=== PATIENT | male | born 1970 | race Caucasian/White ===

== ENCOUNTER 2021-01-02 17:26 | Emergency (ER) | payer OTHER, MEDICAID, SELFPAY ==
[2021-01-02 17:51] VITALS: BP 159/99; PULSE 103; RESP 16; TEMP 36.1; O2SAT 99
[2021-01-02 19:20] VITALS: BP 158/106; PULSE 94; RESP 15; TEMP 36.6; O2SAT 97
[2021-01-02 19:32] LABS: Basophils Percent Auto 0.3 % (0.2-1.2); Eosinophils Absolute Auto 0.2 K/mm3 (0-0.3); Eosinophils Percent Auto 1.3 % (0-4.4); Hematocrit 44.8 % (42.0-52.0); Hemoglobin 14.8 g/dL (14.0-18.0); Immature Granulocyte Absolute 0.04 K/mm3 (0.00-0.031); Immature Granulocyte Percent A 0.3 % (0-0.5); Lymphocytes Absolute Auto 1.73 K/mm3 (0.9-3.2); Lymphocytes Percent Auto 12.9 % (18.3-44.2); Mean Corpuscular Hemoglobin 28.1 pg (26-34); Mean Platelet Volume 9.4 fl (7.4-10.4); Monocytes Absolute Auto 1.2 K/mm3 (0.1-0.6); Monocytes Percent Auto 9.1 % (2.6-8.5); Neutrophils Absolute Auto 10.2 K/mm3 (1.3-6.7); Neutrophils Percent Auto 76.1 % (45.5-73.1); Platelet Count Result 278 k/mm3 (150-375); Red Blood Count 5.27 M/mm3 (4.6-6.20); Red Cell Distribution Width 12.8 % (11.5-14.5); White Blood Count 13.4 K/mm3 (4.5-10.0)
[2021-01-02 19:41] LABS: Add Urine Microscopic? YES; Appearance Urine Clear (Clear); Bilirubin Urine Negative (Negative); Blood Urine 1+ (Negative); Color Urine Yellow (Yellow); Glucose Urine UA Negative (Negative); Ketones Urine Negative (Negative); Leukocyte Esterase Ur Negative LEU/UL (Negative); Mucus Urine Few /lpf; Nitrate Urine Negative (Negative); Protein Urine 2+ mg/dL (Negative); Urobilinogen Urine Negative mg/dL (<2.0)
[2021-01-02 19:42] LABS: Anion Gap 10 mmol/L (8-16); Blood Urea Nitrogen 14 mg/dL (9-20); Calcium 9.1 mg/dL (8.4-10.2); Carbon Dioxide 26 mmol/L (22-30); Chloride 105 mmol/L (98-107); Estimated CRCL calculation 53 ml/min; Estimated Glomerular Filt Rate 40; Glucose 106 mg/dL (75-110); Potassium 3.9 mmol/L (3.4-5.0); Sodium 141 mmol/L (137-145)
[2021-01-02 19:45] LABS: Specific Grav Ur 1.034 (1.001-1.035)
--- NOTE | 2021-01-02 21:22 | PC.NURSE ---
Pt not noted in WR when called for placement into a room.
--- NOTE | 2021-01-02 21:35 | PC.NURSE ---
Pt not noted in the WR at this time on second call.
== END 2021-01-03 05:08 | disposition left against medical advice (07) ==
LOC: ANHED 21:44
PROVIDERS: Emergency Provider Family Medicine
DX: R10.9 Unspecified abdominal pain (principal)
CPT/HCPCS: 36415; 80048; 81001; 85025; 99199

== ENCOUNTER → 2021-03-26 10:14 | Outpatient (CLI) | payer OTHER, MEDICAID, SELFPAY ==
--- NOTE | ~2021-03-26 | CT_ITS ---
EXAMINATION: CT abdomen pelvis wo/w con EXAM DATE: 03/26/2021 11:02 INDICATION: Gross hematuria . TECHNIQUE: Spiral CT of the abdomen and pelvis was performed without contrast. The patient was then injected with small bolus intravenous Omnipaque 350, followed by delay of approximately 10 minutes to allow collecting system to opacify. A post contrast scan abdomen and pelvis was performed during inj ection of remaining contrast. A total of 130 cc intravenous contrast was administered. The dose-young th product (DLP) for this examination was 2281.78 mGy-cm. The exposure was tailored according to pat ient size (auto mA exposure control), and iterative reconstruction (ASIR) was used as additional dose reduction technique. There is no prior study for comparison. FINDINGS: There is punctate 2 mm right calyceal stone. No ureteral stones or hydronephrosis. There i s 1.2 cm cyst in the lower pole of the right kidney. The kidneys enhance symmetrically. There are n o suspicious renal lesions. The calyces and opacified portions of ureters are unremarkable, without filling defects or focal suspicious strictures. The bladder is unremarkable. The prostate is unrema rkable. The liver, spleen, adrenal glands and pancreas are unremarkable. Gallbladder is unremarkable. No bi liary obstruction. There is no retroperitoneal or pelvic lymphadenopathy. The appendix is normal. The stomach and small bowel are unremarkable. There is mild scattered coloni c diverticulosis. There is no adjacent inflammatory change to suggest diverticulitis. There is expec agustina amount of colonic stool. No free intraperitoneal gas. The heart is normal in size. There are no pericardial or pleural effusions. The lung bases are unremarkable. There are no osteoblastic or osteolytic lesions identified. IMPRESSION: 1. Punctate right nephrolithiasis. 2. Mild colonic diverticulosis. Reviewed, dictated and finalized at location B.
[2021-03-26 10:37] LABS: Estimated Glomerular Filt Rate 58
== END ==
PROVIDERS: PCP Family Medicine; Visit Provider Family Medicine
DX: R31.0 Gross hematuria (principal); N20.0 Calculus of kidney; K57.30 Diverticulosis of large intestine without perforation or abscess without bleeding; N28.1 Cyst of kidney, acquired
CPT/HCPCS: 74178; Q9967

== ENCOUNTER 2022-01-25 18:29 | Observation (INO) | payer OTHER, MEDICAID, SELFPAY ==
[2022-01-25] VITALS (11 sets, daily range): BP systolic 140–188; BP diastolic 100–115; PULSE 64–99; RESP 16–20; TEMP 36–36.5; O2SAT 96–100; BMI 35.1
--- NOTE | ~2022-01-25 | CT_ITS ---
EXAMINATION: CT abdomen pelvis wo con DATE: 01/25/2022 19:25 INDICATION: LEFT FLANK PAIN X 24 HOURS/NO HX OF STONES TECHNIQUE: Computed tomography (CT) of the abdomen and pelvis was performed without intravenous contr ast. Automated exposure control and iterative reconstruction technique were employed. The dose-length product was 1068.70 mGy-cm. COMPARISON: 03/26/2021. FINDINGS: Lower thorax: Coronary artery calcifications Liver: Normal. Biliary/Gallbladder: Gallbladder is normal. No bile duct dilation. Pancreas: No mass or duct dilation. Spleen: Normal. Adrenals:No mass. Kidneys: Severe left hydronephrosis and perinephric stranding. Bilateral punctate nonobstructive calc sole. Right renal hypodensities, inadequately characterized in this noncontrast examination. GI tract: No small or large bowel dilation. Normal appendix. Diverticulosis without diverticulitis. Mesentery/Peritoneum: No ascites, mass, or free air. Retroperitoneum: No mass. Atherosclerotic abdominal aortic and/or arterial calcifications. Pelvis: Distal left ureteral dilation. 3 mm calcification in the distal left ureter just prior to the UVJ. 11 mm left pelvic calcification is extra ureteral and was seen in prior study. Soft Tissues: Soft tissues and body wall unremarkable. Bones: No acute osseous finding. IMPRESSION: 3 mm distal left ureteral stone causing severe obstructive uropathy. Reviewed, dictated and finalized at location K.
--- NOTE | 2022-01-25 19:01 | PC.NURSE ---
REPORT TO DESTINEE BARRERA
--- NOTE | 2022-01-25 19:03 | ED.GENADULT ---
HPI - General Adult General Chief complaint: Urogenital-Male Stated complaint: abdominal/rib pain History of Present Illness HPI narrative: Cory is a previously healthy 51M that presented to the ED with abdominal pain. He has had this pain off and on for about a year but it became much worse. It is a stabbing pain that starts in his left flank and goes to the back, LLQ and suprapubic region. It started after a BM. Since it started he has been unable to urinate. He had a BM yesterday. No vomiting, CP, SOB or lightheadedness reported. Related Data Home Medications Medication Instructions Recorded Confirmed No Home Medications 01/25/22 01/25/22 Allergies Allergy/AdvReac Type Severity Reaction Status Date / Time No Known Allergies Allergy Verified 01/25/22 19:12 Review of Systems Constitutional: Constitutional: Reports no additional constitutional complaints Eyes: Eyes: Reports no additional eye complaints ENT: Reports system reviewed and no additional complaints, except as documented Cardiovascular: Cardiovascular: Reports no additional cardiovascular complaints Respiratory: Respiratory: Reports no additional respiratory complaints Gastrointestinal: Gastrointestinal: Reports as per HPI Genitourinary: Genitourinary: Reports as per HPI Musculoskeletal: Musculoskeletal: Reports no additional musculoskeletal complaints Integumentary/Breasts: Skin/Breast: Reports system reviewed and no additional complaints, except as docu Neurologic: Reports system reviewed and no additional complaints, except as documented Psychiatric: Psychiatric: Reports no additional psychiatric complaints Endocrine: Endocrine: Reports no additional endocrine complaints Hematologic/Lymphatic: Hematologic/Lymphatic: Reports no additional hematologic/lymphatic complaints Allergic/Immunologic: Allergic/Immunologic: Reports no additional allergic/immunologic complaints Exam Const: General: healthy appearing and ill appearing acutely (mild distress) Nutritional Appearance: well nourished Orientation/consciousness: patient oriented x3 Limitations: no limitations HENMT: Head: normal to inspection Ears: external ears normal General nose exam: Normal external nose present Face and sinus: normal facial exam Eyes: Conjunctivae: conjunctivae normal Pupils: Equal, round and reactive pupils present EOM: EOMs intact bilaterally Neck: Neck: normal visual inspection Chest: Chest palpation & inspection: normal inspection of the chest Resp: Effort & Inspection: normal respiratory effort and not labored Auscultation: clear to auscultation bilaterally Cardio: Rate: regular rate Rhythm: regular rhythm GI: Inspection: non-distended GI Palp: Yes Soft to palpation and No Guarding due to palpation present (GI) Other: TTP in the suprapubic region and the LLQ. No guarding or rebound tenderness. decreased bowel sounds : Other: Left CVA tenderness Skin: General skin exam: normal color Rashes: no rashes Neuro: General: patient oriented x3 and moves all extremities Extrem: General: normal to inspection Psych: Mental Status: mental status grossly normal Course Course Emergency Course: Ordered morphine for pain. Ordered CT scan, labs and bladder scan. Labs showed slight leukocytosis. UA showed trace blood but no other signs of infection. He did have an CHAS with Cr. of 1.8 but a baseline of 1.3. EXAMINATION: CT abdomen pelvis wo con DATE: 01/25/2022 19:25 INDICATION: LEFT FLANK PAIN X 24 HOURS/NO HX OF STONES TECHNIQUE: Computed tomography (CT) of the abdomen and pelvis was performed without intravenous contrast. Automated exposure control and iterative reconstruction technique were employed. The dose-length product was 1068.70 mGy-cm. COMPARISON: 03/26/2021. FINDINGS: Lower thorax: Coronary artery calcifications Liver: Normal.? Biliary/Gallbladder: Gallbladder is normal. No bile duct dilation. Pancreas: No mass or duct dilatio
[2022-01-25] MEDS: MORPHINE SULFATE (*CRX) 4 MG/ML INJ IV PUSH (19:17)
[2022-01-25 19:36] LABS: Add Urine Microscopic? YES; Appearance Urine Clear (Clear); Bilirubin Urine Negative (Negative); Blood Urine 1+ (Negative); Color Urine Light Yellow (Yellow); Glucose Urine UA Negative (Negative); Ketones Urine Negative (Negative); Leukocyte Esterase Ur Negative (Negative); Nitrate Urine Negative (Negative); Protein Urine Negative (Negative); Specific Grav Ur 1.015 (1.010-1.020); Urobilinogen Urine 0.2 mg/dL (0.2-1.0); pH Urine 5.5 (5.0-8.0)
[2022-01-25 19:41] LABS: RBC Urine 0-2 /hpf (0-2)
[2022-01-25 20:04] LABS: Basophils Absolute Auto 0.04 K/mm3 (0.00-0.10); Basophils Percent Auto 0.3 % (0.0-1.0); Eosinophils Absolute Auto 0.16 K/mm3 (0.02-0.50); Eosinophils Percent Auto 1.1 % (1.0-6.0); Hematocrit 46.1 % (40.0-54.0); Hemoglobin 15.3 g/dL (14.0-18.0); Immature Granulocyte Absolute 0.06 K/mm3 (0.00-0.00); Immature Granulocyte Percent A 0.4 % (0.0-0.0); Lymphocytes Absolute Auto 1.75 K/mm3 (1.10-4.50); Lymphocytes Percent Auto 12.2 % (18.0-42.0); Mean Corpuscular HGB Conc 33.2 g/dL (32.0-36.0); Mean Corpuscular Hemoglobin 28.4 pg (27.0-31.0); Mean Corpuscular Volume 85.5 fL (78.0-102.0); Mean Platelet Volume 9.6 fl (8.7-11.0); Monocytes Absolute Auto 1.26 K/mm3 (0.10-0.90); Monocytes Percent Auto 8.8 % (2.0-11.0); Neutrophils Absolute Auto 11.1 K/mm3 (1.7-7.2); Neutrophils Percent Auto 77.2 % (50.0-70.0); Platelet Count Result 295 K/mm3 (150-420); Red Blood Count 5.39 M/mm3 (4.70-6.10); Red Cell Distribution Width 12.6 % (11.6-14.4); White Blood Count 14.3 K/mm3 (4.8-10.8)
[2022-01-25 20:19] LABS: Alanine Aminotransferase 24 U/L (16-63); Albumin Level 3.6 g/dL (3.4-5.0); Alkaline Phosphatase 81 U/L (46-116); Anion Gap 5 mmol/L (8-16); Aspartate Amino Transferase 14 U/L (15-37); Blood Urea Nitrogen 13 mg/dL (7-18); CRP 1.4 mg/dL (0.0-0.9); Calcium 8.8 mg/dL (8.5-10.1); Carbon Dioxide 30 mmol/L (21-32); Chloride 103 mmol/L (98-108); Estimated CRCL calculation 60 ml/min; Estimated Glomerular Filt Rate 41; Glucose 93 mg/dL (70-99); Lipase 80 U/L (73-393); Osmolality Calculated 286 mOsm/kg (285-295); Potassium 3.6 mmol/L (3.5-5.1); Sodium 138 mmol/L (136-145); Total Protein 7.2 g/dL (6.4-8.2)
[2022-01-25 20:20] LABS: INR 0.9; Prothrombin Time 10.2 Seconds (9.50-12.10)
[2022-01-25 20:23] LABS: Lactic Acid Reflex 1.5 mmol/L (0.4-2.0)
[2022-01-25] MEDS: TAMSULOSIN HCL 0.4 MG CAPSULE PO (21:13)
[2022-01-25] MEDS: SODIUM CHLORIDE 0.9% IV 1,000 ML 200 ML IV CONT (21:14)
[2022-01-25] MEDS: MORPHINE SULFATE (*CRX) 2 MG/ML INJ IV PUSH (21:21)
--- NOTE | 2022-01-25 22:02 | ECG_ITS ---
Measurements Intervals [place] Rate: 74 P: 64 [place]: 153 QRS: 80 QRSD: 106 T: 71 QT: 407 QTc: 453 Interpretive Statements SINUS RHYTHM POSSIBLE LEFT ATRIAL ENLARGEMENT LOW QRS VOLTAGE IN PRECORDIAL LEADS BORDERLINE T WAVE ABNORMALITY- HIGH LATERAL LEADS BASELINE ARTIFACT- I, III, AVL, V2 BORDERLINE ECG Electronically Signed On 01-26-2022 7:43:25 CDT by Luis Alfredo Almazan D.O.
--- NOTE | 2022-01-25 22:53 | ADMGEN ---
This patient, Cory Chase, was admitted to 2nd Floor Room 202-1. Patient/family oriented to hospital policies and general routines including ID bracelet, bed and alarms, visiting hours, pain management, procedures, bathroom and other care routines, personal items, smoking policy, room service/diet, and visiting hours. Information on how to activate the Rapid Response Team has been discussed. Patient/Family are encouraged to report perceived risks to care and to ask questions if they do not understand what they are told or what they should do.
[2022-01-26] MEDS: ACETAMINOPHEN 325 MG TABLET 650 MG PO ×2 (00:38→05:26)
[2022-01-26] MEDS: SODIUM CHLORIDE 0.9% IV 1,000 ML 200 ML IV CONT (04:52)
[2022-01-26 06:18] LABS: Hematocrit 44.1 % (40.0-54.0); Hemoglobin 14.3 g/dL (14.0-18.0); Mean Corpuscular HGB Conc 32.4 g/dL (32.0-36.0); Mean Corpuscular Hemoglobin 28.1 pg (27.0-31.0); Mean Corpuscular Volume 86.8 fL (78.0-102.0); Mean Platelet Volume 10.1 fl (8.7-11.0); Platelet Count Result 260 K/mm3 (150-420); Red Blood Count 5.08 M/mm3 (4.70-6.10); Red Cell Distribution Width 12.9 % (11.6-14.4); White Blood Count 8.2 K/mm3 (4.8-10.8)
[2022-01-26 06:37] LABS: Alanine Aminotransferase 19 U/L (16-63); Albumin Level 3.2 g/dL (3.4-5.0); Alkaline Phosphatase 76 U/L (46-116); Anion Gap 8 mmol/L (8-16); Aspartate Amino Transferase 13 U/L (15-37); Bilirubin,Total 0.7 mg/dL (0.00-1.00); Blood Urea Nitrogen 12 mg/dL (7-18); Calcium 8.4 mg/dL (8.5-10.1); Carbon Dioxide 26 mmol/L (21-32); Chloride 104 mmol/L (98-108); Estimated CRCL calculation 82 ml/min; Estimated Glomerular Filt Rate > 60; Glucose 107 mg/dL (70-99); Magnesium 2.1 mg/dL (1.8-2.4); Osmolality Calculated 285 mOsm/kg (285-295); Potassium 3.4 mmol/L (3.5-5.1); Sodium 138 mmol/L (136-145); Total Protein 6.7 g/dL (6.4-8.2)
[2022-01-26 08:00] VITALS: BP 153/96; PULSE 73; RESP 16; TEMP 35.8; O2SAT 96
--- NOTE | 2022-01-26 08:01 | PM.SD2 ---
Same Day Admit/Disch: HPI History of Present Illness Chief complaint: abdominal/rib pain Narrative: Cory Chase is a 51 year old male who presented to emergency department with abdominal pain. Patient notes that he does have a history of having kidney stones. Patient notes that on Wednesday he experienced pain to his left lower quadrant that radiated to his lower left back and epigastric area. Patient notes that he has experienced pain in this area in the past but not as severe. Patient does have a history of kidney stones and was told in the past consult the urologist. Patient notes that he has Medicaid and was unable to locate a provider that will accept his insurance. Patient is better controlled today and he was educated on the importance of following up with the urologist to resolve his situation. Patient has been given referral to urologist at [facility] he was discharged with Flomax as recommended by the urologist pain medication instructed to strain his urine and antibiotic for possible infection. Patient's blood pressure is elevated at 168/115 due to his pain. Patient denies any history of hypertension. Once his pain is controlled his blood pressure will go down. He will need to follow-up with his primary care physician. Other vitals 64, 16, 97.6, 97% on room air admissions labs WBCs 14.3, hemoglobin 15.3, hematocrit 46.1, platelets 295, sodium 138, potassium 3.6, BUN 13, lactic acid 1.5, AST 14, ALT 24, CRP 1.4, UA positive for blood CT of the abdomen indicates distal left urethral dilution 3 cm modification in the distal left urethra just prior to the UVJ.11 mm left pelvic calcification is extra ureteral and was seen in prior study. Discharge instructions reviewed with patient, as well as provided in writing per nursing staff. The instructions also include specific and strict return/GO TO THE ER as well as f/u information. All questions have been answered, and the patient and/or family deny any further questions with discharge and discharge plan. The patient denies SOB, CP, palpitation, extremity numbness, lightheadedness, dizziness, constipation, diarrhea, chills, or fever. Patient does admit to discomfort to the left lower quadrant. [facility] Social History Social History Smoking packs per day: 1 Smoking cigarettes per day: 20.0 Years smoked: 35 Smoking pack-years: 35.00 Smoking status: Current every day smoker Tobacco type: cigarettes Alcohol intake: former Substance use type: does not use Spiritual care concerns: No Same Day Admit/Disch: Med Pre-admit Medications Home Medications Medication Instructions Recorded Confirmed Type cefdinir 300 mg capsule 300 mg PO Q12H 10 days #20 caps 01/26/22 Rx hydrocodone 10 mg-acetaminophen 1 tablet PO Q6H PRN pain #30 tabs 01/26/22 Rx 325 mg tablet prochlorperazine maleate 10 mg 10 mg PO Q6H PRN nausea and 01/26/22 Rx tablet (Compazine) vomiting #30 tabs tamsulosin 0.4 mg capsule 0.4 mg PO QAM #30 caps 01/26/22 Rx Exam Narrative: GENERAL: This is a well-nourished, well-developed patient, in no apparent distress. HEAD: normocephalic, atraumatic. EYES: PERRL. Sclera clear/white. Vision is grossly intact. EARS: External ears normal, auditory canals clear and without drainage, TMs normal without perforation. Hearing grossly intact. NOSE: External nose normal with no obvious nasal discharge, nares without redness, no rhinorrhea. THROAT: Mucous membranes moist, posterior pharynx clear. NECK: Neck supple, non-tender without lymphadenopathy, masses or thyromegaly. CARDIOVASCULAR: Regular rate and rhythm without murmurs, gallops, or rubs. RESPIRATORY: Clear to auscultation. Breath sounds equal bilaterally. No wheezes, rales, or rhonchi. GASTROINTESTINAL: Abdomen soft, tenderness to the left lower quadrant and epigastric area nondistended. Bowel sounds are active. No hepato-splenomegaly, or palpable m
[2022-01-26] MEDS: TAMSULOSIN HCL 0.4 MG CAPSULE PO (08:41)
[2022-01-26] MEDS: HYDROcodone/acetaminophen (*CRX) 10-325 MG TABLET 1 TAB PO (10:15)
--- NOTE | 2022-01-26 12:16 | PC.NURSE ---
Reviewed discharge summary with patient. All questions answered.
--- NOTE | 2022-01-29 12:43 | PC.NURSE ---
Follow up call completed, instructions reviewed and understood, urology to call tomorrow to schedule to have the stone blasted, was very pleased with his care, states was the best care ever
== END 2022-01-26 12:50 | disposition home or self-care (01) ==
LOC: CHSED 22:02 → CHS2ND 22:03
PROVIDERS: Nurse Practitioner; Admitting Provider Internal Medicine; Emergency Provider Family Medicine; PCP Family Medicine; Visit Provider Internal Medicine
DX: N20.1 Calculus of ureter (principal); R03.0 Elevated blood-pressure reading, without diagnosis of hypertension; F17.210 Nicotine dependence, cigarettes, uncomplicated; Z87.442 Personal history of urinary calculi
CPT/HCPCS: 36415; 74176; 80053; 81001; 83605; 83690; 83735; 85025; 85027; 85610; 86140; 87040; 93005; 96361; 96365; 96374; 96376; 99285; A9270; G0378; J0696; J2270; J7030

== ENCOUNTER 2022-02-16 13:24 | Emergency (ER) | payer OTHER, MEDICAID, SELFPAY ==
--- NOTE | ~2022-02-16 | CT_ITS ---
EXAMINATION: CT abdomen pelvis wo con DATE: 02/16/2022 14:30 INDICATION: Left flank pain TECHNIQUE: Computed tomography (CT) of the abdomen and pelvis was performed without intravenous contr ast. The dose-length product (DLP) was 536.03 mGy-cm. Automated exposure control and iterative recons truction technique were employed. COMPARISON: 01/25/2022 FINDINGS: Minimal dependent atelectasis is present in the lung bases. The heart size is normal. Calci fied coronary artery atherosclerosis is noted. Punctate calcifications in otherwise normal appearing liver and spleen likely represent healed granulomatous disease. The pancreas, gallbladder, and adrena l glands are normal. There is a moderate amount of left perinephric fat stranding. A previously ident ified 2 mm stone of the left kidney is no longer seen. There is a left pelvic calcification demonstra agustina to be extra ureteral on prior CT. The previously identified left kidney stone could plausibly abu t, and be obscured by, this left pelvic calcification. The distal left ureter is normal in caliber be yond the left pelvic calcification. There is a 4 mm nonobstructing stone of the right kidney. No path ologically enlarged abdominal or pelvic lymph nodes are identified. There is no free intraperitoneal gas or evidence of bowel obstruction. There is mild lumbar spondylosis. IMPRESSION: 1. Moderate left hydroureteronephrosis without definite obstructing stone identified. However, a prev iously seen 2 mm stone of the left kidney is no longer identified and may be obscured by chronic left pelvic calcification has the distal ureter is normal in caliber beyond this point. Reviewed, dictated and finalized at location B. IMPRESSION: 1. Moderate left hydroureteronephrosis without definite obstructing stone ident ified. However, a previously seen 2 mm stone of the left kidney is no longer id entified and may be obscured by chronic left pelvic calcification has the dista l ureter is normal in caliber beyond this point.
[2022-02-16 13:30] VITALS: BP 140/90; PULSE 88; RESP 18; TEMP 36.6; O2SAT 97
--- NOTE | 2022-02-16 13:51 | ED.GENADULT ---
HPI - General Adult General Chief complaint: Urogenital-Male Stated complaint: Kidney stones History of Present Illness HPI narrative: The patient is a 51-year-old male who was diagnosed on January 25, 2022 with a left ureteral calculus, 3 mm, at the left UVJ, with obstructive uropathy and severe left-sided hydronephrosis. He received intravenous antiemetics and pain medications and was admitted for 23 hours for continued intravenous fluids and pain control. The urinalysis at that time was negative for a urinary tract infection. He was discharged on January 26, 2022 on cefdinir (for ? UTI), hydrocodone 10 mg prn (for pain), Compazine (for nausea), and Flomax. He initially took these medications then stopped as his symptoms had improved and his pain had resolved. He had seen urology ([facility]) on 01/29/2022, and 30 day follow-up with the urologist was advised at that time. His pain has now restarted since midnight last night, 02/16/2022 and has been ongoing for the last 14 hours. It is in the left flank, radiating anteriorly to the left lower quadrant and posteriorly to the left back, associated with nausea but no vomiting. The pain is severe and is uncomfortable for him. No chest pain. No fevers or chills or diaphoresis. No dysuria hematuria or urinary urgency or frequency. No testicular swelling or pain. No chest pain. No dyspnea. No other complaints. Related Data Allergies Allergy/AdvReac Type Severity Reaction Status Date / Time No Known Allergies Allergy Verified 02/16/22 13:54 Review of Systems Review of Systems: All systems reviewed & are unremarkable except as noted in HPI and below Constitutional: Constitutional: Reports no additional constitutional complaints, Denies anorexia, Denies body ache(s), Denies chills, Denies excessive sweating, Denies fatigue, Denies fever(s), Denies frequent falls, Denies headache(s), Denies malaise and Denies poor appetite Eyes: Eyes: Reports no additional eye complaints, Denies blurry vision, Denies change in vision, Denies irritation, Denies itchy eyes and Denies photophobia ENT: Reports system reviewed and no additional complaints, except as documented, Reports Normal hearing present, Denies change in voice, Denies dysphagia, Denies vertigo, Denies dizziness, Denies ear discharge, Denies headache(s), Denies hearing loss, Denies hoarseness, Denies nasal congestion, Denies neck pain, Denies sinus pressure, Denies sore throat and Denies throat swelling Cardiovascular: Cardiovascular: Reports no additional cardiovascular complaints, Denies chest pain, Denies syncope, Denies rapid heart rate, Denies irregular heart rhythm, Denies leg edema, Denies dyspnea and Denies slow heart rate Respiratory: Respiratory: Reports no additional respiratory complaints, Denies cough, Denies dyspnea, Denies stridor and Denies wheezing Gastrointestinal: Gastrointestinal: Reports no additional gastrointestinal complaints, Reports abdominal pain, Denies melena, Denies hematochezia, Denies dysphagia, Denies diarrhea, Reports nausea and Denies vomiting Genitourinary: Genitourinary: Denies hematuria, Denies oliguria, Denies genital lesions, Denies dysuria, Reports flank pain (left), Denies penile discharge, Denies testicular pain, Denies urinary frequency, Denies urinary incontinence and Denies urinary urgency Musculoskeletal: Musculoskeletal: Reports no additional musculoskeletal complaints, Denies abnormal gait, Reports back pain (extending from the left flank pain), Denies myalgias, Denies arthralgias, Denies joint swelling, Denies limited range of motion, Denies muscle cramps, Denies muscle weakness, Denies neck pain and Denies numbness Integumentary/Breasts: Skin/Breast: Reports system reviewed and no additional complaints, except as docu, Denies breast pain, Denies change in pigmentation, Denies pruritus, Denies erythema and Denies wounds Neurologic: Reports system reviewed and no additional complaints, except as doc
[2022-02-16] MEDS: SODIUM CHLORIDE 0.9% IV 1,000 ML 999 ML IV CONT ×2 (14:00→14:59)
[2022-02-16] MEDS: ONDANSETRON INJ 4 MG/2 ML VIAL IV PUSH (14:01)
[2022-02-16] MEDS: MORPHINE SULFATE (*CRX) 4 MG/ML INJ IM (14:02)
[2022-02-16 14:17] LABS: Basophils Absolute Auto 0.05 K/mm3 (0.00-0.10); Basophils Percent Auto 0.4 % (0.0-1.0); Eosinophils Percent Auto 0.7 % (1.0-6.0); Hematocrit 44.8 % (40.0-54.0); Hemoglobin 14.8 g/dL (14.0-18.0); Immature Granulocyte Absolute 0.05 K/mm3 (0.00-0.00); Immature Granulocyte Percent A 0.4 % (0.0-0.0); Lymphocytes Absolute Auto 1.45 K/mm3 (1.10-4.50); Lymphocytes Percent Auto 10.2 % (18.0-42.0); Mean Corpuscular Hemoglobin 28.6 pg (27.0-31.0); Mean Corpuscular Volume 86.5 fL (78.0-102.0); Mean Platelet Volume 9.7 fl (8.7-11.0); Monocytes Absolute Auto 1.25 K/mm3 (0.10-0.90); Monocytes Percent Auto 8.8 % (2.0-11.0); Neutrophils Absolute Auto 11.3 K/mm3 (1.7-7.2); Neutrophils Percent Auto 79.5 % (50.0-70.0); Platelet Count Result 297 K/mm3 (150-420); Red Blood Count 5.18 M/mm3 (4.70-6.10); Red Cell Distribution Width 12.6 % (11.6-14.4); White Blood Count 14.2 K/mm3 (4.8-10.8)
[2022-02-16 14:30] VITALS: BP 147/65; PULSE 85; RESP 18; O2SAT 99
[2022-02-16 14:32] LABS: Alanine Aminotransferase 28 U/L (16-63); Albumin Level 3.9 g/dL (3.4-5.0); Alkaline Phosphatase 77 U/L (46-116); Amylase 29 U/L (25-115); Anion Gap 6 mmol/L (8-16); Aspartate Amino Transferase 16 U/L (15-37); Bilirubin,Total 1.4 mg/dL (0.00-1.00); Blood Urea Nitrogen 19 mg/dL (7-18); Calcium 8.7 mg/dL (8.5-10.1); Carbon Dioxide 28 mmol/L (21-32); Chloride 104 mmol/L (98-108); Estimated CRCL calculation 66 ml/min; Estimated Glomerular Filt Rate 46; Glucose 118 mg/dL (70-99); Lipase 46 U/L (73-393); Osmolality Calculated 289 mOsm/kg (285-295); Potassium 3.6 mmol/L (3.5-5.1); Sodium 138 mmol/L (136-145); Total Protein 7.2 g/dL (6.4-8.2)
[2022-02-16 14:52] LABS: SARS-CoV-2 RNA PCR Negative (Negative)
[2022-02-16 14:56] LABS: Add Urine Microscopic? YES; Appearance Urine Clear (Clear); Bilirubin Urine Negative (Negative); Blood Urine 1+ (Negative); Color Urine Yellow (Yellow); Glucose Urine UA Negative (Negative); Ketones Urine Negative (Negative); Leukocyte Esterase Ur Negative LEU/UL (Negative); Nitrate Urine Negative (Negative); Protein Urine Trace (Negative); Specific Grav Ur >= 1.030 (1.010-1.020); Urobilinogen Urine 0.2 mg/dL (0.2-1.0); pH Urine 5.5 (5.0-8.0)
[2022-02-16] MEDS: HYDROmorphone HCL INJ (*CRX) 2 MG/ML VIAL 1 MG IV PUSH (15:00)
[2022-02-16 15:02] LABS: Bacteria Urine None seen /hpf; Mucus Urine Few /lpf; Squamous Epithelial Cell Urine Rare /hpf (Few); WBC Urine 0-3 /hpf (0-3)
[2022-02-16] MEDS: TAMSULOSIN HCL 0.4 MG CAPSULE PO (15:05)
[2022-02-16 15:12] VITALS: BP 132/60; PULSE 79; RESP 16; O2SAT 99
[2022-02-16] MEDS: SODIUM CHLORIDE 0.9% IV 1,000 ML 150 ML IV CONT (16:54)
[2022-02-16 18:03] VITALS: BP 164/95; PULSE 75; RESP 20; O2SAT 97
--- NOTE | 2022-02-16 18:07 | PC.NURSE ---
[facility] unavailable to transfer pt. [facility] paged for this pt.
== END 2022-02-16 18:35 | disposition short-term general hospital (02) ==
PROVIDERS: Emergency Provider Emergency Medicine; PCP Family Medicine
DX: N23 Unspecified renal colic (principal); N17.9 Acute kidney failure, unspecified; N13.30 Unspecified hydronephrosis; Z20.822 Contact with and (suspected) exposure to COVID-19
CPT/HCPCS: 36415; 74176; 80053; 81001; 82150; 83690; 85025; 96361; 96365; 96375; 99285; A9270; C9803; J0696; J1170; J2270; J2405; J7030; U0003; U0005

== ENCOUNTER 2022-02-16 19:08 | Observation (INO) | payer OTHER, MEDICAID, SELFPAY ==
--- NOTE | ~2022-02-16 | XR_ITS ---
EXAMINATION: XR retrograde pyelo w/stent LT DATE: 02/17/2022 13:28 INDICATION: Left ureteral stent placement TECHNIQUE: Fluoroscopic images from a left ureteral stent placement are submitted for review. 27 seco nds of fluoroscopy time. FINDINGS: There is a left double-J internal ureteral stent projecting in expected position, with proximal [place] loop at the level of the renal pelvis and distal loop in the pelvis within the bladder lumen. IMPRESSION: 1. Left internal ureteral stent placement. Please refer to real-time procedural findings for detail s. Reviewed, dictated and finalized at location A. IMPRESSION: 1. Left internal ureteral stent placement. Please refer to real-time procedur al findings for details.
--- NOTE | 2022-02-16 20:40 | PM.IMHP ---
H&P: HPI History of Present Illness Date/Time: 02/16/22 20:40 <Anisha Bell PA-C - Last Filed: 02/16/22 23:37> Chief Complaint: Abdominal pain and hydroureteronephrosis. <Anisha Bell PA-C - Last Filed: 02/16/22 23:37> Narrative: This is a 51-year-old male with history of kidney stones who is being directly admitted to the medical floor from the emergency department at the [facility] for further evaluation and treatment of abdominal pain and hydroureteronephrosis noted on imaging today. He was recently admitted to that facility on 01/25/2022 with abdominal pain at which time he was found to have a 3 mm distal left ureteral stone causing severe obstructive uropathy. He was admitted for hydration and pain control and was started on Flomax. He felt better with supportive care and was discharged the following day with prescriptions for cefdinir, tamsulosin, and hydrocodone which he took for several days however he stopped taking them as he felt better. He reportedly followed up with the urologist on 01/29/2022 but I do not see any notes in the chart regarding that. Unfortunately yesterday he once again developed severe left-sided flank pain, radiating anteriorly to the left lower quadrant and through to the back associated with nausea. CT of the abdomen and pelvis today showed moderate left hydroureteronephrosis without definite obstructing stone however a previously seen 2 mm stone of the left kidney is no longer identified and it may be obscured by chronic left pelvic calcification as the distal ureter is normal in caliber be on that point. In this setting he is being transferred to this facility for consultation with Urology. At the time my evaluation he is finally resting comfortably after receiving IV dilaudid 1 mg. He has no current pain and denies fever, chills, sweats, nausea, vomiting, dysuria, and hematuria. <Anisha Bell PA-C - Last Filed: 02/16/22 23:37> Review of Systems Review of Systems: Twelve systems were reviewed and are negative except for as per HPI. <Anisha Bell PA-C - Last Filed: 02/16/22 23:37> [facility] Past Medical History Medical History: Medical History Calculi, ureter Kidney stones Nicotine dependence Obesity <Anisha Bell PA-C - Last Filed: 02/16/22 23:37> Surgical History Surgical History: Surgical History History of exploratory laparotomy Per patient report he was only born with [address] of the abdomen done sometime in the showed a concerning area in the left abdomen for which she had an exploratory laparotomy which revealed scar tissue and no mass. <nAisha Bell PA-C - Last Filed: 02/16/22 23:37> Family History Family History: Family History Father Acute myocardial infarction Cerebrovascular accident Mother Brain bleed Hypertension Mother No problems noted. Sibling Acute myocardial infarction <TATA Evans Last Filed: 02/16/22 23:37> Social History Social History: Social History Social History: Surrogate medical decision maker: Crispin Guy. Code status: Full code. Smoking packs per day: 1 Smoking cigarettes per day: 20.0 Years smoked: 35 Smoking pack-years: 35.00 Smoking status: Smoker, status unknown Tobacco type: cigarettes Alcohol intake: never Substance use: never Additional living arrangements comments: The patient lives with a friend in [place]. Additional occupation/education comments: Self-employed, owns a [employer]. Spiritual care concerns: No <Anisha Bell PA-C - Last Filed: 02/16/22 23:37> Meds Home Medications and Allergies Home medications: Home Medications Medi
[2022-02-16] MEDS: MORPHINE SULFATE (*CRX) 2 MG/ML INJ IV PUSH (21:13)
--- NOTE | 2022-02-16 21:19 | ADMGEN ---
This patient, Cory Chase, was admitted to 3 Med Surg Room 311-01. Patient/family oriented to hospital policies and general routines including ID bracelet, bed and alarms, visiting hours, pain management, procedures, bathroom and other care routines, personal items, smoking policy, room service/diet, and visiting hours. Information on how to activate the Rapid Response Team has been discussed. Patient/Family are encouraged to report perceived risks to care and to ask questions if they do not understand what they are told or what they should do.
[2022-02-16 22:00] VITALS: BP 168/102; PULSE 88; RESP 20; TEMP 36.2; O2SAT 95
[2022-02-16] MEDS: HYDROmorphone HCL INJ (*CRX) 1 MG/ML SYR IV PUSH (22:04)
[2022-02-16] MEDS: LACTATED RINGERS 1,000 ML 100 ML IV CONT (23:18)
[2022-02-17] VITALS (8 sets, daily range): BP systolic 126–171; BP diastolic 65–103; PULSE 75–87; RESP 15–20; TEMP 36–36.9; O2SAT 92–100; BMI 31.6
[2022-02-17] MEDS: HYDROmorphone HCL INJ (*CRX) 1 MG/ML SYR IV PUSH ×3 (00:49→09:37)
[2022-02-17 05:39] LABS: Hematocrit 44.6 % (42.0-52.0); Hemoglobin 14.9 g/dL (14.0-18.0); Mean Corpuscular HGB Conc 33.4 g/dl (32-36); Mean Corpuscular Hemoglobin 28.5 pg (26-34); Mean Corpuscular Volume 85.4 fl (80-100); Mean Platelet Volume 9.6 fl (7.4-10.4); Platelet Count Result 288 k/mm3 (150-375); Red Blood Count 5.22 M/mm3 (4.6-6.20); Red Cell Distribution Width 12.9 % (11.5-14.5); White Blood Count 13.4 K/mm3 (4.5-10.0)
[2022-02-17 05:49] LABS: Anion Gap 8 mmol/L (8-16); Blood Urea Nitrogen 14 mg/dL (9-20); Calcium 8.3 mg/dL (8.4-10.2); Carbon Dioxide 26 mmol/L (22-30); Chloride 103 mmol/L (98-107); Estimated CRCL calculation 76 ml/min; Estimated Glomerular Filt Rate 53; Glucose 125 mg/dL (65-110); Magnesium 1.8 mg/dL (1.6-2.3); Sodium 137 mmol/L (137-145)
--- NOTE | 2022-02-17 08:01 | WPDANESEPPF ---
Anes - Initial Pre Proc Eval Procedure: Operation Date: 02/17/22 16:00 Proposed Procedures p Cystoscopy, Left Ureteroscopy, Possible Left Retrograde Pyelogram, Possible Left Stone Extraction, Possible Left Stent Placement, Possible Holmium Laser Procedure - Von Cabrera MD Date/Time: 02/17/22 08:01 Surgeon: Aubree Carey DO Pre Op Diagnosis: Obstructing left kidney stone Patient Data Age: 51 Gender: M Height: 1.91 m Weight: 116.4 kg Last Vital Signs Temp 36.1 C L 02/17/22 06:00 Pulse 75 02/17/22 06:00 Resp 20 02/17/22 06:00 BP 156/103 H 02/17/22 06:00 Pulse Ox 94 02/17/22 06:00 Allergies Allergy/AdvReac Type Severity Reaction Status Date / Time No Known Allergies Allergy Verified 02/16/22 13:54 Home Medications Medication Instructions Recorded Confirmed Type cefdinir 300 mg capsule 300 mg PO Q12H 10 days #20 caps 01/26/22 02/16/22 Rx hydrocodone 10 mg-acetaminophen 1 tablet PO Q6H PRN pain #30 tabs 01/26/22 02/16/22 Rx 325 mg tablet prochlorperazine maleate 10 mg 10 mg PO Q6H PRN nausea and 01/26/22 02/16/22 Rx tablet (Compazine) vomiting #30 tabs tamsulosin 0.4 mg capsule 0.4 mg PO QAM #30 caps 01/26/22 02/16/22 Rx Laboratory Tests 02/17/22 02/17/22 05:32 05:32 WBC 13.4 K/mm3 H K/mm3 (4.5-10.0) RBC 5.22 M/mm3 M/mm3 (4.6-6.20) Hgb 14.9 g/dL g/dL (14.0-18.0) Hct 44.6 % % (42.0-52.0) MCV 85.4 fl fl (80-100) MCH 28.5 pg pg (26-34) MCHC 33.4 g/dl g/dl (32-36) RDW 12.9 % % (11.5-14.5) Plt Count 288 k/mm3 k/mm3 (150-375) MPV 9.6 fl fl (7.4-10.4) Sodium 137 mmol/L mmol/L (137-145) Potassium 4.0 mmol/L mmol/L (3.4-5.0) Chloride 103 mmol/L mmol/L (98-107) Carbon Dioxide 26 mmol/L mmol/L (22-30) Anion Gap 8 mmol/L mmol/L (8-16) BUN 14 mg/dL mg/dL (9-20) Creatinine 1.40 mg/dL H mg/dL (0.7-1.3) Estim Creat Clear Calc 76 ml/min ml/min Estimated GFR 53 L (59 - ) Glucose 125 mg/dL H mg/dL (65-110) Calcium 8.3 mg/dL L mg/dL (8.4-10.2) Magnesium 1.8 mg/dL mg/dL (1.6-2.3) Patient hx anesthesia problems: none Family hx anesthesia problems: none Results Review: All pre-operative results and documents have been reviewed as part of the pre-operative evaluation. [facility] Past Medical History Medical History Calculi, ureter Kidney stones Nicotine dependence Obesity Surgical History Surgical History History of exploratory laparotomy Per patient report he was only born with [address] of the abdomen done sometime in the showed a concerning area in the left abdomen for which she had an exploratory laparotomy which revealed scar tissue and no mass. Family History Family History Father Acute myocardial infarction Cerebrovascular accident Mother Brain bleed Hypertension Mother No problems noted. Sibling Acute myocardial infarction Social History Social History Social History: Surrogate medical decision maker: Crispin Guy. Code status: Full code. Smoking packs per day: 1 Smoking cigarettes per day: 20.0 Years smoked: 35 Smoking pack-years: 35.00 Smoking status: Smoker, status unknown Tobacco type: cigarettes Alcohol intake: never Substance use: never Additional living arrangements comments: The patient lives with a friend in [place]. Additional occupation/education comments: Self-employed, owns a [employer]. Spiritual care concerns: No Anes - Eval Final PreProcedure Day of Procedure 02/17/22 08:01 Patient weight: obese Heart: regular rate and rhythm Lungs: clear to au
[2022-02-17] MEDS: TAMSULOSIN HCL 0.4 MG CAPSULE PO (08:31)
--- NOTE | 2022-02-17 08:49 | PM.IMPN ---
Progress Note: A&P Assessment and Plan (1) Left flank pain: Code(s): R10.9 - Unspecified abdominal pain Status: Acute Assessment and Plan: Secondary to hydroureteronephrosis from possible obstructing stone, Dilaudid 1 mg q.3 hours available as needed for pain. 02/17: Will start antibiotic prophylaxis with Cipro, urology consult pending, pain controlled, will discontinue Dilaudid in favor of Toradol (2) Hydroureteronephrosis: Code(s): N13.30 - Unspecified hydronephrosis Status: Acute Assessment and Plan: Possible obstructing stone as previously seen 2 mm left kidney stone is no longer visible be obscured due to calcifications. There is some blood in his urine but no evidence of infection. He will be NPO after midnight for probable cystoscopy and stent placement. Dr. Jeter has been consulted. 02/17: Urology consult pending, cont cipro for prophylaxis, npo, toradol, flomax, strain all urine, dilaudid available for severe pain (3) Acute kidney injury: Code(s): N17.9 - Acute kidney failure, unspecified Status: Acute Assessment and Plan: Creatinine is once again elevated, likely related to the above. He will be hydrated overnight and we will avoid nephrotoxic agents. Monitor I/O and repeat renal function in a.m. 02/17: Creatinine improved with IV fluids, down to 1.4, continue IV fluids (4) Elevated blood pressure reading: Code(s): R03.0 - Elevated blood-pressure reading, without diagnosis of hypertension Status: Acute Assessment and Plan: I suspect he may have underlying hypertension as his blood pressures were consistently elevated with his most recent hospitalization. Pain is certainly playing a factor here thus will continue to monitor and initiate hypertensives if indicated depending on how he trends. 02/17: Blood pressure continues to be quite elevated despite pain being controlled, will consider placing patient on any antihypertensive at discharge, will hold off for now due to acute kidney injury (5) Nicotine dependence: Code(s): F17.200 - Nicotine dependence, unspecified, uncomplicated Status: Acute Assessment and Plan: Smoking cessation is encouraged. He declines the need for a nicotine patch. Subjective Date/time seen: 02/17/22 08:49 Review of Systems Review of Systems: ?12 point review of systems was assessed and was negative except as noted in the HPI Exam Narrative: General:? No acute distress, alert and oriented per baseline HEENT:? Atraumatic, normocephalic, mucous membranes moist CV:? Regular rate and rhythm, S1, S2 Lungs:? Clear to auscultation bilaterally, no rales or crackles noted, no wheezes, good air entry Abdomen:? Soft, nontender, nondistended Extremities:? Normal to inspection Skin:? No rashes noted, no lesions or wounds seen Psych:? Euthymic, normal affect Objective Data Vital Signs Vital Signs: Vital Signs - 24 hr 02/16/22 22:00 02/17/22 06:00 Temperature 97.1 F L 97 F L Pulse Rate 88 75 Respiratory Rate 20 20 Blood Pressure 168/102 H 156/103 H Pulse Oximetry 95 94 Intake/Output Intake/Output: Intake & Output 02/14/22 02/15/22 02/16/22 02/17/22 23:59 23:59 23:59 23:59 Intake Total 300 Output Total 425 Balance -125 Meds/Results Medications: Active Medications Generic Name Dose Route Start Last Admin Trade Name Freq PRN Reason Stop Dose Admin Acetaminophen 650 mg 02/16/22 20:36 Acetaminophen 325 Mg Tablet PO Q4H PRN Mild Pain (1-3) or Fever Hydrocodone Bitart/Acetaminophen 1 tab 02/16/22 20:36 Hydrocodone/Acetaminophen (*Crx) 5-325 Mg Tablet PO Q4H PRN Moderate Pain (4-6) Fentanyl Citrate 25 mcg 02/17/22 08:00 Fentanyl Citrate Inj (*Crx) 100 Mcg/2 Ml Vial IV PUSH Q2M PRN Pain Hydromorphone HCl 1 mg 02/16/22 21:44 02/17/22 05:13 Hydromorphone Hcl Inj (*Crx) 1 Mg/Ml Syr IV PUSH 1 mg Q3H
[2022-02-17] MEDS: LACTATED RINGERS 1,000 ML 100 ML IV CONT (09:37)
[2022-02-17] MEDS: CIPROFLOXACIN 400 MG/D5W 200ML 200 ML 200 MG IVPB (10:35)
--- NOTE | 2022-02-17 10:36 | WPDHPUPDATE1 ---
History and Physical Update Update Date/Time: 02/17/22 10:36 History and Physical has been reviewed, including an updated exam of the patient. There are NO changes in the patient's condition. Risks, benefits, and alternatives have been discussed and questions answered. Patient agrees to proceed with procedure. Proceed with cystoscopy, left retrograde pyelogram, possible left ureteroscopy with holmium laser, stone extraction, stent placement
--- NOTE | 2022-02-17 10:41 | WPDURCON ---
Assessment and Plan Assessment and plan (1) Calculi, ureter: Code(s): N20.1 - Calculus of ureter Status: Acute Assessment and Plan: Resolved (2) Hydroureteronephrosis: Code(s): N13.30 - Unspecified hydronephrosis Status: Acute Assessment and Plan: Keep NPO. The patient is not tolerating his pain and hydro has not resolve s/p stone passage, therefore he will need a ureteroscopy to further assess. Obtain Consent: Cystoscopy, left ureteroscopy with possible stent placement, left retrograde pyelogram for Dr. Cabrera this afternoon. (3) Left flank pain: Code(s): R10.9 - Unspecified abdominal pain Status: Acute Urology Consult Note HPI Date Seen: 02/17/22 Time Seen: 09:00 Requesting Physician: Aubree Carey DO Primary Care Provider: Payam Coronel MD Consult Narrative Reason for consult: Left Hydronephrosis Narrative: Cory Chase is a 51 year old male who presented to the ER in [place] last night with worsening left flank pain that radiates to the LLQ accompanied by nausea. He was transferred here for further evaluation d/t findings of left severe hydronephrosis on CT scan without obstruction. He was seen initially for this problem in the ER on 01/25/22 and at that time he was found to have a 3mm distal left ureteral stone with hydronephrosis and what was thought to be an 11mm ureteral stone as well, but was later determined to be outside of the urinary tract. He was discharged home then with pain medications to attempt to pass the stone and to follow up with our group. He did a virtual visit with Dr. Cabrera on 01/29/22 and was doing well at that time tolerating pain, therefore the plan was to monitor symptoms and f/u in one month to do a MAYKEL and ensure hydro had resolved as it was likely that he would pass a 3mm stone in the UVJ. His pain continues today and he is reliant on pain medications around the clock. He is unable to get comfortable. His WBC is up slightly at 13.4 and creatinine is 1.40. He remains afebrile and is otherwise stable. His UA shows RBC's but is not suggestive of a UTI. Review of Systems Cardiovascular: Cardiovascular: Denies chest pain Respiratory: Respiratory: Reports no additional respiratory complaints Gastrointestinal: Gastrointestinal: Reports abdominal pain, Reports nausea and Denies vomiting Genitourinary: Genitourinary: Denies hematuria, Denies dysuria, Reports flank pain, Denies urinary frequency, Denies urinary hesitancy and Denies urinary urgency PMF Past Medical History Medical History Calculi, ureter Kidney stones Nicotine dependence Obesity Surgical History Surgical History History of exploratory laparotomy Per patient report he was only born with [address] of the abdomen done sometime in the showed a concerning area in the left abdomen for which she had an exploratory laparotomy which revealed scar tissue and no mass. Family History Family History Father Acute myocardial infarction Cerebrovascular accident Mother Brain bleed Hypertension Mother No problems noted. Sibling Acute myocardial infarction Social History Social History Social History: Surrogate medical decision maker: Crispin Guy. Code status: Full code. Smoking packs per day: 1 Smoking cigarettes per day: 20.0 Years smoked: 35 Smoking pack-years: 35.00 Smoking status: Smoker, status unknown Tobacco type: cigarettes Alcohol intake: never Substance use: never Additional living arrangements comments: The patient lives with a friend in [place]. Additional occupation/education comments: Self-employed, owns a [employer]. Spiritual care concerns: No Meds Home Medicatio
[2022-02-17] MEDS: fentaNYL CITRATE INJ (*CRX) 100 MCG/2 ML VIAL 50 MCG IV PUSH (12:27)
[2022-02-17] MEDS: LIDOCAINE HCL 2% GEL UROJET 10 ML PKG MUCOUS MEM (13:15)
[2022-02-17] MEDS: KETOROLAC 30 MG/ML VIAL (*BKC) IV PUSH (13:22)
--- NOTE | 2022-02-17 13:30 | P.OP_ITS ---
Procedure Note - Detailed Date of Procedure 02/17/22 Pre-op Diagnosis Obstructing left ureteral calculus 1 cm Post-op Diagnosis Same Procedure Performed Cystoscopy, left retrograde pyelogram, left ureteroscopy with holmium laser, stone extraction, left ureteral stent placement 4.8 Brazilian contour Surgeon Von Cabrera MD Anesthesia General Description of Procedure Patient is taken to the operative suite and correctly identified. Once anesthesia was obtained was placed in dorsal lithotomy position and prepped and draped usual sterile fashion. Ninety Brazilian scope inserted into the bladder. There was no tumors noted. Left ureteral orifice was cannulated with a guidewire. We dilated with an 8/10 dilator. Rigid ureteral scope was then inserted into the left ureteral orifice. The stone was too large to retrieve 1 piece. Using a 272 micron fiber we fragmented stone in multiple pieces. Larges t ones were sent for analysis. Reinspection revealed no significant stone burden. Pyelogram was then performed confirm placement of the stent in the renal pelvis. 4.8 Brazilian contour stent was then placed with the proximal end coiled in the left renal pelvis and the distal end in the bladder. Bladder was drained. 2% viscous lidocaine was inserted into the urethra patient is taken recovery stable condition. He will follow up in a week's time for stent removal. Urine Output 425 Drains Yes Packing No Pathology Yes Complications No immediate complications Condition Stable Disposition PACU
[2022-02-17] MEDS: LACTATED RINGERS 1,000 ML 30 ML IV CONT (13:34)
--- NOTE | 2022-02-17 14:52 | PM.DS ---
DS: Admitting Diagnosis Discharge Date February 17, 2022 Admitting Diagnosis obstructing kidney stone DS: Discharge Diagnosis Discharge Diagnosis (1) Left flank pain: Code(s): R10.9 - Unspecified abdominal pain Status: Acute Assessment and Plan: Secondary to hydroureteronephrosis from possible obstructing stone, Dilaudid 1 mg q.3 hours available as needed for pain. 02/17: Will start antibiotic prophylaxis with Cipro, urology consult pending, pain controlled, will discontinue Dilaudid in favor of Toradol (2) Hydroureteronephrosis: Code(s): N13.30 - Unspecified hydronephrosis Status: Acute Assessment and Plan: Possible obstructing stone as previously seen 2 mm left kidney stone is no longer visible be obscured due to calcifications. There is some blood in his urine but no evidence of infection. He will be NPO after midnight for probable cystoscopy and stent placement. Dr. Jeter has been consulted. 02/17: Urology consult pending, cont cipro for prophylaxis, npo, toradol, flomax, strain all urine, dilaudid available for severe pain (3) Acute kidney injury: Code(s): N17.9 - Acute kidney failure, unspecified Status: Acute Assessment and Plan: Creatinine is once again elevated, likely related to the above. He will be hydrated overnight and we will avoid nephrotoxic agents. Monitor I/O and repeat renal function in a.m. 02/17: Creatinine improved with IV fluids, down to 1.4, continue IV fluids (4) Elevated blood pressure reading: Code(s): R03.0 - Elevated blood-pressure reading, without diagnosis of hypertension Status: Acute Assessment and Plan: I suspect he may have underlying hypertension as his blood pressures were consistently elevated with his most recent hospitalization. Pain is certainly playing a factor here thus will continue to monitor and initiate hypertensives if indicated depending on how he trends. 02/17: Blood pressure continues to be quite elevated despite pain being controlled, will consider placing patient on any antihypertensive at discharge, will hold off for now due to acute kidney injury (5) Nicotine dependence: Code(s): F17.200 - Nicotine dependence, unspecified, uncomplicated Status: Acute Assessment and Plan: Smoking cessation is encouraged. He declines the need for a nicotine patch. DS: Summary Hospital Course Hospital Course: 51-year-old male with history of kidney stones being directly admitted from [place] for hydroureteronephrosis with obstructing ureteral stone. Overnight, he was admitted with IV fluids, Flomax, Cipro and pain control. Urology was consulted and performed a left retrograde pyelogram with left ureteroscopy with lithotripsy and stone extraction and a left ureteral stent placement. Urology said the patient was able to go home he tolerated p.o. and his pain was controlled with outpatient follow-up in 1 week for stent removal. Time Spent with Patient Time attestation: Total time spent providing and/or coordinating discharge services: Exam Narrative: General:? No acute distress, alert and oriented per baseline HEENT:? Atraumatic, normocephalic, mucous membranes moist CV:? Regular rate and rhythm, S1, S2 Lungs:? Clear to auscultation bilaterally, no rales or crackles noted, no wheezes, good air entry Abdomen:? Soft, nontender, nondistended Extremities:? Normal to inspection Skin:? No rashes noted, no lesions or wounds seen Psych:? Euthymic, normal affect DS: Data Data Completed and Pending Pending studies at discharge: Pending at discharge 02/17/22 13:09 Surgical [PTH] Routine Labs on day of discharge: Labs from last 24 hours 02/17/22 02/17/22 05:32 05:32 WBC 13.4 H RBC 5.22 Hgb 14.9 Hct 44.6 MCV 85.4 MCH 28.5 MCHC 33.4 RDW 12.9 Plt Count 288 MPV 9.6 Sodium 137 Potassium 4.0 Chloride 103 Carbon Dioxide 26 Anion Ga
== END 2022-02-17 17:00 | disposition home or self-care (01) ==
PROVIDERS: Physician Assistant; Urology; Admitting Provider Family Medicine; PCP Family Medicine; Visit Provider Student in an Organized Health Care Education/Training Program
PROC: (CPT 52352; principal; 2022-02-17 16:00)
DX: N13.2 Hydronephrosis with renal and ureteral calculous obstruction (principal); N17.9 Acute kidney failure, unspecified; R03.0 Elevated blood-pressure reading, without diagnosis of hypertension; F17.210 Nicotine dependence, cigarettes, uncomplicated; E66.9 Obesity, unspecified; Z68.32 Body mass index [BMI] 32.0-32.9, adult
CPT/HCPCS: 52356; 36415; 74420; 80048; 82365; 83735; 85027; 88300; 96361; 96374; 96375; 96376; A9270; C1769; C2617; G0378; J0744; J1170; J1885; J2210; J2250; J2270; J3010; J7120; Q9966

== ENCOUNTER 2022-04-19 23:47 | Emergency (ER) | payer OTHER, MEDICAID, SELFPAY ==
--- NOTE | ~2022-04-19 | CT_ITS ---
EXAMINATION: CT abdomen pelvis wo con DATE: 04/20/2022 00:29 INDICATION: Right flank pain TECHNIQUE: Computed tomography (CT) of the abdomen and pelvis was performed without intravenous contr ast. The dose-length product was 1379.17 mGy-cm. Automated exposure control and iterative reconstruct ion technique were employed. COMPARISON: CT dated 02/16/2022 FINDINGS: Lung bases are unremarkable. Heart size normal. No significant pleural or pericardial effus ion. There is atherosclerosis of the aorta. There is a 4 mm distal right ureteral stone near the UVJ with moderate hydronephrosis and perinephric edema. No renal stones. Nonobstructive bowel gas pattern. There are calcified granulomas of the liver and spleen. The pancrea s, adrenal glands and left kidney are unremarkable. Gallbladder is present. Normal appendix. Small fa t-containing umbilical hernia. Mild lumbar spondylosis. IMPRESSION: 1. Obstructing 4 mm distal right ureteral stone just proximal to the UVJ. There is moderate associate d hydronephrosis and perinephric edema. Reviewed, dictated and finalized at location B. IMPRESSION: 1. Obstructing 4 mm distal right ureteral stone just proximal to the UVJ. There is moderate associated hydronephrosis and perinephric edema.
[2022-04-19 23:54] VITALS: BP 183/120; PULSE 75; RESP 18; TEMP 36.4; O2SAT 98
[2022-04-20] MEDS: ONDANSETRON INJ 4 MG/2 ML VIAL IV PUSH (00:13)
[2022-04-20] MEDS: KETOROLAC (*BKC) 60 MG/2 ML VIAL IM (00:13)
[2022-04-20] MEDS: SODIUM CHLORIDE 0.9% IV 500 ML 999 ML IV CONT (00:14)
--- NOTE | 2022-04-20 00:14 | ED.ABDPAIN ---
HPI - Abdominal Pain General Chief Complaint: Abdominal Pain Stated Complaint: Right Flank Pain Time Seen by Provider: 04/19/22 23:51 Source: patient, family and RN notes reviewed Mode of arrival: ambulatory Limitations: no limitations History of Present Illness MD elicited complaint: flank pain Pertinent past history: kidney stones Pain Consistency: constant Location: R flank Severity: mild Pain scale (0-10): 8 Quality: cramping and aching Radiation: R flank Migration to: R flank Exacerbating factors: nothing Relieving factors: nothing Associated symptoms: nausea Related Data Allergies Allergy/AdvReac Type Severity Reaction Status Date / Time No Known Allergies Allergy Verified 02/16/22 13:54 Review of Systems Review of Systems: All systems reviewed & are unremarkable except as noted in HPI and below Constitutional: Constitutional: Reports no additional constitutional complaints Eyes: Eyes: Reports no additional eye complaints ENT: Reports system reviewed and no additional complaints, except as documented Cardiovascular: Cardiovascular: Reports no additional cardiovascular complaints Respiratory: Respiratory: Reports no additional respiratory complaints Gastrointestinal: Gastrointestinal: Reports no additional gastrointestinal complaints Genitourinary: Comments: right flank pain Musculoskeletal: Musculoskeletal: Reports no additional musculoskeletal complaints Integumentary/Breasts: Skin/Breast: Reports system reviewed and no additional complaints, except as docu Neurologic: Reports system reviewed and no additional complaints, except as documented Psychiatric: Psychiatric: Reports no additional psychiatric complaints Endocrine: Endocrine: Reports no additional endocrine complaints Hematologic/Lymphatic: Hematologic/Lymphatic: Reports no additional hematologic/lymphatic complaints Allergic/Immunologic: Allergic/Immunologic: Reports no additional allergic/immunologic complaints PMFSH Past Medical History Medical History Calculi, ureter Kidney stones Nicotine dependence Obesity Surgical History Surgical History History of exploratory laparotomy Per patient report he was only born with [address] of the abdomen done sometime in the showed a concerning area in the left abdomen for which she had an exploratory laparotomy which revealed scar tissue and no mass. Family History Family History Father Acute myocardial infarction Cerebrovascular accident Mother Brain bleed Hypertension Mother No problems noted. Sibling Acute myocardial infarction Social History Social History Social History: Surrogate medical decision maker: Rosechristygerald Guy. Code status: Full code. Smoking packs per day: 1 Smoking cigarettes per day: 20.0 Years smoked: 35 Smoking pack-years: 35.00 Smoking status: Smoker, status unknown Tobacco type: cigarettes Alcohol intake: never Substance use: never Additional living arrangements comments: The patient lives with a friend in [place]. Additional occupation/education comments: Self-employed, owns a [employer]. Spiritual care concerns: No Exam Const: General: healthy appearing and no acute distress Nutritional Appearance: well nourished Orientation/consciousness: patient oriented x3 Limitations: no limitations HENMT: Head: normal to inspection Ears: external ears normal, TM's normal bilaterally and EAC's normal General nose exam: Normal external nose present and Normal nares present Face and sinus: normal facial exam and sinuses nontender Mouth: Yes Normal oral and palatal mucosa present and Yes moist mucous membranes Teeth and gingiva: dentition normal Throat: posterior oropharynx normal E
[2022-04-20 00:41] LABS: Basophils Absolute Auto 0.06 K/mm3 (0.00-0.10); Basophils Percent Auto 0.4 % (0.0-1.0); Eosinophils Percent Auto 0.6 % (1.0-6.0); Hematocrit 44.1 % (40.0-54.0); Hemoglobin 14.6 g/dL (14.0-18.0); Immature Granulocyte Absolute 0.05 K/mm3 (0.00-0.00); Immature Granulocyte Percent A 0.3 % (0.0-0.0); Lymphocytes Absolute Auto 1.45 K/mm3 (1.10-4.50); Lymphocytes Percent Auto 8.5 % (18.0-42.0); Mean Corpuscular HGB Conc 33.1 g/dL (32.0-36.0); Mean Corpuscular Hemoglobin 28.2 pg (27.0-31.0); Mean Corpuscular Volume 85.3 fL (78.0-102.0); Mean Platelet Volume 9.6 fl (8.7-11.0); Monocytes Absolute Auto 1.04 K/mm3 (0.10-0.90); Monocytes Percent Auto 6.1 % (2.0-11.0); Neutrophils Absolute Auto 14.4 K/mm3 (1.7-7.2); Neutrophils Percent Auto 84.1 % (50.0-70.0); Platelet Count Result 279 K/mm3 (150-420); Red Blood Count 5.17 M/mm3 (4.70-6.10); Red Cell Distribution Width 12.6 % (11.6-14.4); White Blood Count 17.1 K/mm3 (4.8-10.8)
[2022-04-20 00:42] LABS: Add Urine Microscopic? YES; Bilirubin Urine Negative (Negative); Blood Urine 3+ (Negative); Color Urine Light Yellow (Yellow); Glucose Urine UA Negative (Negative); Ketones Urine Trace (Negative); Leukocyte Esterase Ur Negative (Negative); Nitrate Urine Negative (Negative); Protein Urine 1+ (Negative); Specific Grav Ur 1.025 (1.010-1.020); Urobilinogen Urine 0.2 mg/dL (0.2-1.0); pH Urine 8.5 (5.0-8.0)
[2022-04-20] MEDS: MORPHINE SULFATE (*CRX) 2 MG/ML INJ IV PUSH (00:47)
[2022-04-20] MEDS: cloNIDine HCL 0.2 MG TABLET PO ×2 (00:47→02:22)
[2022-04-20 00:51] VITALS: BP 165/113; PULSE 87; RESP 18; O2SAT 97
[2022-04-20 00:51] LABS: Appearance Urine Slightly Cloudy (Clear); RBC Urine 51-75 /hpf (0-2)
[2022-04-20 01:01] LABS: Alanine Aminotransferase 30 U/L (16-63); Albumin Level 3.9 g/dL (3.4-5.0); Alkaline Phosphatase 76 U/L (46-116); Anion Gap 9 mmol/L (8-16); Aspartate Amino Transferase 22 U/L (15-37); Bilirubin,Total 0.8 mg/dL (0.00-1.00); Blood Urea Nitrogen 18 mg/dL (7-18); Calcium 9.3 mg/dL (8.5-10.1); Carbon Dioxide 26 mmol/L (21-32); Chloride 103 mmol/L (98-108); Estimated CRCL calculation 61 ml/min; Estimated Glomerular Filt Rate 42; Glucose 130 mg/dL (70-99); Osmolality Calculated 289 mOsm/kg (285-295); Sodium 138 mmol/L (136-145); Total Protein 7.2 g/dL (6.4-8.2)
--- NOTE | 2022-04-20 01:21 | PC.NURSE ---
POC discussed c pt and , they want Dr Cabrera called again as he has an appnt c him this week. Call placed to Manuel.
--- NOTE | 2022-04-20 01:25 | PC.NURSE ---
Spoke to Elizabeth, will page Dr Cabrera, awaiting his call back.
[2022-04-20 01:31] VITALS: BP 163/108; PULSE 74; RESP 18; O2SAT 98
--- NOTE | 2022-04-20 01:41 | PC.NURSE ---
Dr Tovar spoke c urologist Dr Guerra, he accepts for pt transfer, awaiting call back from [facility] for bed placement.
--- NOTE | 2022-04-20 01:53 | PC.NURSE ---
Bed received from destiny Johnson at [facility]. Report called and paperwork signed by pt for transfer. Pt sleeping, no distress or pain noted at this time.
[2022-04-20 01:55] VITALS: BP 160/104
[2022-04-20] MEDS: KCL 40 MEQ/D5/0.9% SOD CHL 1,000 ML 100 ML IV CONT (02:12)
[2022-04-20 02:17] VITALS: BP 171/113; PULSE 62; RESP 18; O2SAT 96
[2022-04-20 02:35] VITALS: BP 176/108; PULSE 64; RESP 18; TEMP 36.6; O2SAT 95
--- NOTE | 2022-04-20 02:55 | PC.NURSE ---
Report given to TOMAS, pt loaded for transfer s difficulty, BP remains elevated at 173/110
== END 2022-04-20 03:02 | disposition short-term general hospital (02) ==
PROVIDERS: Emergency Provider Emergency Medicine; PCP Family Medicine
DX: N13.9 Obstructive and reflux uropathy, unspecified (principal); N13.30 Unspecified hydronephrosis; N20.1 Calculus of ureter
CPT/HCPCS: 36415; 74176; 80053; 81001; 85025; 96361; 96365; 96372; 96375; 99285; A9270; J0696; J1885; J2270; J2405; J3480; J7040

== ENCOUNTER 2022-04-20 04:44 | Observation (INO) | payer OTHER, MEDICAID, SELFPAY ==
[2022-04-20] VITALS (14 sets, daily range): BP systolic 125–162; BP diastolic 78–105; PULSE 62–80; RESP 12–20; TEMP 36.1–36.6; O2SAT 92–99; BMI 32.1
--- NOTE | ~2022-04-20 | XR_ITS ---
EXAMINATION: XR retrograde pyelo w/stent RT DATE: 04/20/2022 15:39 INDICATION: Right ureteral stone with hydronephrosis. TECHNIQUE: 4 fluoroscopic images of the abdomen and pelvis were obtained during procedure performed carson Jeter. Radiologist was not present for the imaging or procedure. The amount of fluoroscopy suleman e used during this procedure was 0.4 minutes. COMPARISON: CT dated 04/20/2022 FINDINGS: The distal right ureteral stone is not identified on the reconciliation clerk images. There is subsequently retrogra de injection of contrast into the right renal collecting system which demonstrates mild hydronephrosi s. Final image demonstrates placement of a right internal ureteral stent with distal tip in upper dre e calyx of the right kidney. IMPRESSION: 1. Right intrarenal stent placement for mild right hydronephrosis. Previous identified distal right u reteral stone is not identified on the provided images. Correlate with procedure note for further det ail. Reviewed, dictated and finalized at location A. IMPRESSION: 1. Right intrarenal stent placement for mild right hydronephrosis. Previous saniya ntified distal right ureteral stone is not identified on the provided images. C orrelate with procedure note for further detail.
--- NOTE | ~2022-04-20 | XR_ITS ---
EXAMINATION: XR chest 2V DATE: 04/20/2022 08:34 INDICATION: Right flank pain TECHNIQUE: Frontal and lateral views of the chest are obtained COMPARISON: None available FINDINGS: The lungs are free of acute opacities. No pleural effusion or pneumothorax. The cardiomedia stinal silhouette is normal. There is mild thoracic spondylosis. IMPRESSION: 1. No acute cardiopulmonary abnormality. Reviewed, dictated and finalized at location A.
--- NOTE | ~2022-04-20 | CT_ITS ---
EXAMINATION: CT pelvis wo con DATE: 04/20/2022 08:41 INDICATION: Right flank pain TECHNIQUE: Computed tomography (CT) of the pelvis was performed without intravenous contrast. The dos e-length product (DLP) was 570.19 mGy-cm. Automated exposure control and iterative reconstruction jovanna hnique were employed. COMPARISON: 0023 hours FINDINGS: There is a 5 mm stone in the distal right ureter which demonstrates minimal distal migratio n since the comparison examination. There is moderate persistent right hydroureter. No stones are saniya ntified in the bladder. There are no pathologically enlarged pelvic lymph nodes. Colonic diverticulos is is present without evidence of diverticulitis. There is no free intraperitoneal gas or evidence of bowel obstruction. There is unchanged mild enlargement of the appendix which contains gas and does n ot demonstrate inflammatory change. IMPRESSION: 1. 5 mm stone in the distal right ureter with slight distal migration since the comparison examinatio n. Reviewed, dictated and finalized at location A. IMPRESSION: 1. 5 mm stone in the distal right ureter with slight distal migration since the comparison examination.
--- NOTE | 2022-04-20 03:38 | ADMGEN ---
This patient, Cory Chase, was admitted to 2 Medical Room 261-01. Patient/family oriented to hospital policies and general routines including ID bracelet, bed and alarms, visiting hours, pain management, procedures, bathroom and other care routines, personal items, smoking policy, room service/diet, and visiting hours. Information on how to activate the Rapid Response Team has been discussed. Patient/Family are encouraged to report perceived risks to care and to ask questions if they do not understand what they are told or what they should do.
[2022-04-20] MEDS: MORPHINE SULFATE (*CRX) 2 MG/ML INJ IV PUSH ×2 (05:23→13:12)
[2022-04-20] MEDS: KCL 20 MEQ/0.45% NS 1,000 ML 80 ML IV CONT ×2 (05:24→20:06)
--- NOTE | 2022-04-20 05:41 | ECG_ITS ---
Measurements Intervals [place] Rate: 56 P: 2 TN: 159 QRS: -16 QRSD: 108 T: -18 QT: 452 QTc: 439 Interpretive Statements SINUS BRADYCARDIA BORDERLINE T WAVE ABNORMALITY- INFERIOR LEADS BORDERLINE ECG COMPARED TO ECG 01/25/2022 22:22:12 HEART RATE HAS DECREASED Electronically Signed On 04-20-2022 11:30:26 CDT by Luis Alfredo Almazan D.O.
--- NOTE | 2022-04-20 08:30 | WPDURCON ---
Assessment and Plan Assessment and plan (1) Calculi, ureter: Code(s): N20.1 - Calculus of ureter Status: Acute Assessment and Plan: Right distal ureteral stone noted on CT scan from outside facility. I viewed the CT scan myself. He states he passed something before transfer. He had pain for a few hours but none since. In light of this I am going to repeat his CT scan. If the stone is still present I offered a trial of conservative stone passage versus ureteroscopy with stone extraction. If the stone is still present we can go in that direction. He is quite adamant that he does not want a ureteral stent, but I told him that if we do perform ureteroscopy a stent may be necessary. Will see what his CT scan shows and go from there (2) Hydroureteronephrosis: Code(s): N13.30 - Unspecified hydronephrosis Status: Acute Assessment and Plan: due to distal ureteral stone Urology Consult Note HPI Date Seen: 04/20/22 Requesting Physician: Monica Hernandez MD Primary Care Provider: Payam Coronel MD Consult Narrative Narrative: Cory Chase is a 51 year old male with a history of nephrolithiasis. He had a left ureteroscopy in January of this year. He had recurrent onset of right flank pain a few days ago. He went to an outside emergency room. He received no evaluation went home. His pain intensified. He returned to emergency room last night. He had a CT scan which documented a 3-4 mm distal ureteral stone. He denied fevers and chills. He denied hematuria. He states he passed something at that hospital before being transferred here. He states his pain has improved but he did experience pain for a few hours even after the passage of a foreign body. He is currently resting comfortably. One is pain was at its most intense it was in the right flank radiating to the right testicle Review of Systems Review of Systems: All systems reviewed & are unremarkable except as noted in HPI and below PMFSH Past Medical History Medical History Calculi, ureter Kidney stones Nicotine dependence Obesity Surgical History Surgical History History of exploratory laparotomy Per patient report he was only born with [address] of the abdomen done sometime in the showed a concerning area in the left abdomen for which she had an exploratory laparotomy which revealed scar tissue and no mass. Family History Family History Father Acute myocardial infarction Cerebrovascular accident Mother Brain bleed Hypertension Mother No problems noted. Sibling Acute myocardial infarction Social History Social History Social History: Surrogate medical decision maker: Crispin Guy. Code status: Full code. Smoking packs per day: 1 Smoking cigarettes per day: 20.0 Years smoked: 35 Smoking pack-years: 35.00 Smoking status: Smoker, status unknown Tobacco type: cigarettes Alcohol intake: never Substance use: never Additional living arrangements comments: The patient lives with a friend in [place]. Additional occupation/education comments: Self-employed, owns a [employer]. Spiritual care concerns: No Meds Home Medications and Allergies Home Medications Medication Instructions Recorded Confirmed Type hydrocodone 10 mg-acetaminophen 1 tablet PO Q6H PRN pain #30 tabs 01/26/22 04/20/22 Rx 325 mg tablet Allergies Allergy/AdvReac Type Severity Reaction Status Date / Time No Known Allergies Allergy Verified 02/16/22 13:54 Vital Signs Vital Signs - 24 hr 04/20/22 03:44 04/20/22 04:03 04/20/22 08:15 Temperature 97.9 F Pulse Rate 69 Respiratory Rate 17 18 Blood Pressure 144/82 H Pulse Oximetry 98 98
[2022-04-20 09:45] LABS: Basophils Percent Auto 0.2 % (0.2-1.2); Eosinophils Absolute Auto 0.2 K/mm3 (0-0.3); Eosinophils Percent Auto 1.8 % (0-4.4); Hematocrit 43.5 % (42.0-52.0); Hemoglobin 13.8 g/dL (14.0-18.0); Immature Granulocyte Absolute 0.02 K/mm3 (0.00-0.031); Immature Granulocyte Percent A 0.2 % (0-0.5); Lymphocytes Absolute Auto 2.15 K/mm3 (0.9-3.2); Lymphocytes Percent Auto 19.6 % (18.3-44.2); Mean Corpuscular HGB Conc 31.7 g/dl (32-36); Mean Corpuscular Volume 88.4 fl (80-100); Mean Platelet Volume 9.6 fl (7.4-10.4); Monocytes Absolute Auto 1.1 K/mm3 (0.1-0.6); Neutrophils Absolute Auto 7.5 K/mm3 (1.3-6.7); Neutrophils Percent Auto 68.2 % (45.5-73.1); Platelet Count Result 243 k/mm3 (150-375); Red Blood Count 4.92 M/mm3 (4.6-6.20); Red Cell Distribution Width 12.9 % (11.5-14.5)
[2022-04-20 09:57] LABS: Anion Gap 10 mmol/L (8-16); Blood Urea Nitrogen 20 mg/dL (9-20); Calcium 8.6 mg/dL (8.4-10.2); Carbon Dioxide 25 mmol/L (22-30); Chloride 105 mmol/L (98-107); Estimated CRCL calculation 60 ml/min; Estimated Glomerular Filt Rate 40; Glucose 120 mg/dL (65-110); Potassium 3.4 mmol/L (3.4-5.0); Sodium 140 mmol/L (137-145)
--- NOTE | 2022-04-20 11:16 | PM.IMHP ---
H&P: HPI History of Present Illness Date/Time: 04/20/22 11:16 Chief Complaint: Cory Chase is a 51 year old male? with a history of nephrolithiasis.? He had a left ureteroscopy in January of this year.? He had recurrent onset of right flank pain a few days ago.? He went to an outside emergency room.? He received no evaluation went home.? His pain intensified.? He returned to emergency room last night.? He had a CT scan which documented a 3-4 mm distal ureteral stone.? He denied fevers and chills.? He denied hematuria.? He states he passed something at that hospital before being transferred here.? He states his pain has improved but he did experience pain for a few hours even after the passage of a foreign body.? He is currently resting comfortably.? One is pain was at its most intense it was in the right flank radiating to the right testicle PMFSH Past Medical History Medical History Calculi, ureter Kidney stones Nicotine dependence Obesity Surgical History Surgical History History of exploratory laparotomy Per patient report he was only born with [address] of the abdomen done sometime in the showed a concerning area in the left abdomen for which she had an exploratory laparotomy which revealed scar tissue and no mass. Family History Family History Father Acute myocardial infarction Cerebrovascular accident Mother Brain bleed Hypertension Mother No problems noted. Sibling Acute myocardial infarction Social History Social History Social History: Surrogate medical decision maker: Crispin Guy. Code status: Full code. Smoking packs per day: 1 Smoking cigarettes per day: 20.0 Years smoked: 35 Smoking pack-years: 35.00 Smoking status: Smoker, status unknown Tobacco type: cigarettes Alcohol intake: never Substance use: never Additional living arrangements comments: The patient lives with a friend in [place]. Additional occupation/education comments: Self-employed, owns a [employer]. Spiritual care concerns: No Meds Home Medications and Allergies Home Medications Medication Instructions Recorded Confirmed Type hydrocodone 10 mg-acetaminophen 1 tablet PO Q6H PRN pain #30 tabs 01/26/22 04/20/22 Rx 325 mg tablet Allergies Allergy/AdvReac Type Severity Reaction Status Date / Time No Known Allergies Allergy Verified 02/16/22 13:54 Vital Signs Vital Signs - 24 hr 04/20/22 03:44 04/20/22 04:03 04/20/22 08:15 Temperature 97.9 F Pulse Rate 69 Respiratory Rate 17 18 Blood Pressure 144/82 H Pulse Oximetry 98 98 Oxygen Delivery Room Air Room Air Exam Narrative: General: alert and oriented Psych: appropriate mood nad affect Eyes: PERRLA Neck: Trachea midline, no new lesions Skin: no changes Lungs: CTA Cardiac: Normal S1,S2, no MGR ABD: soft, nd, nt, nbs Ext: no new lesions, no cce Vasc: Pulses intact H&P: Results Labs Labs: Short CBC 04/20/22 Range/Units 09:34 WBC 11.0 H (4.5-10.0) K/mm3 Hgb 13.8 L (14.0-18.0) g/dL Hct 43.5 (42.0-52.0) % Plt Count 243 (150-375) k/mm3 [facility] 04/20/22 09:34 Sodium 140 Potassium 3.4 Chloride 105 Carbon Dioxide 25 BUN 20 Creatinine 1.80 H Glucose 120 H Calcium 8.6 Assessment and Plan Assessment and plan (1) Calculi, ureter: Code(s): N20.1 - Calculus of ureter Status: Acute Assessment and Plan: see plan from Urology.
--- NOTE | 2022-04-20 13:53 | PC.NURSE ---
Report called to Sandra FELIPE preop.
--- NOTE | 2022-04-20 14:10 | PC.NURSE ---
To OR via bed. Family at bedside.
--- NOTE | 2022-04-20 14:42 | WPDANESEPPF ---
Anes - Initial Pre Proc Eval Procedure: Operation Date: 04/20/22 15:15 Proposed Procedures p Cystoscopy,Right Ureteroscopy,Right Retrograde Pyelogram,Right Stone Extraction Possible Holmium Laser,Possible Stent Placement - Dion Guerra MD Date/Time: 04/20/22 14:42 Surgeon: Monica Hernandez MD Pre Op Diagnosis: r obstructing kidney stone Patient Data Age: 51 Gender: M Height: 1.91 m Weight: 116.8 kg Last Vital Signs Temp 36.6 C 04/20/22 03:44 Pulse 69 04/20/22 03:44 Resp 18 04/20/22 08:15 BP 144/82 H 04/20/22 03:44 Pulse Ox 98 04/20/22 08:15 O2 Del Method Room Air 04/20/22 08:15 Allergies Allergy/AdvReac Type Severity Reaction Status Date / Time No Known Allergies Allergy Verified 02/16/22 13:54 Home Medications Medication Instructions Recorded Confirmed Type hydrocodone 10 mg-acetaminophen 1 tablet PO Q6H PRN pain #30 tabs 01/26/22 04/20/22 Rx 325 mg tablet Laboratory Tests 04/20/22 04/20/22 09:34 09:34 WBC 11.0 K/mm3 H K/mm3 (4.5-10.0) RBC 4.92 M/mm3 M/mm3 (4.6-6.20) Hgb 13.8 g/dL L g/dL (14.0-18.0) Hct 43.5 % % (42.0-52.0) MCV 88.4 fl fl (80-100) MCH 28.0 pg pg (26-34) MCHC 31.7 g/dl L g/dl (32-36) RDW 12.9 % % (11.5-14.5) Plt Count 243 k/mm3 k/mm3 (150-375) MPV 9.6 fl fl (7.4-10.4) Immature Gran % (Auto) 0.2 % % (0-0.5) Neut % (Auto) 68.2 % % (45.5-73.1) Lymph % (Auto) 19.6 % % (18.3-44.2) [place] % (Auto) 10.0 % H % (2.6-8.5) Eos % (Auto) 1.8 % % (0-4.4) Baso % (Auto) 0.2 % % (0.2-1.2) Lymph # (Auto) 2.15 K/mm3 K/mm3 (0.9-3.2) [place] # (Auto) 1.1 K/mm3 H K/mm3 (0.1-0.6) Eos # (Auto) 0.2 K/mm3 K/mm3 (0-0.3) Baso # (Auto) 0.0 K/mm3 K/mm3 (0.0-0.1) Abs Immat Gran (auto) 0.02 K/mm3 K/mm3 (0.00-0.031) Absolute Neuts (auto) 7.5 K/mm3 H K/mm3 (1.3-6.7) Absolute Nucleated RBC 0.0 K/mm3 K/mm3 (0.0-0.012) Nucleated RBC % 0.0 % % (0.0-0.2) Sodium 140 mmol/L mmol/L (137-145) Potassium 3.4 mmol/L mmol/L (3.4-5.0) Chloride 105 mmol/L mmol/L (98-107) Carbon Dioxide 25 mmol/L mmol/L (22-30) Anion Gap 10 mmol/L mmol/L (8-16) BUN 20 mg/dL mg/dL (9-20) Creatinine 1.80 mg/dL H mg/dL (0.7-1.3) Estim Creat Clear Calc 60 ml/min ml/min Estimated GFR 40 L (59 - ) Glucose 120 mg/dL H mg/dL (65-110) Calcium 8.6 mg/dL mg/dL (8.4-10.2) Patient hx anesthesia problems: none Family hx anesthesia problems: none Results Review: All pre-operative results and documents have been reviewed as part of the pre-operative evaluation. [facility] Past Medical History Medical History Calculi, ureter Kidney stones Nicotine dependence Obesity VANIA (obstructive sleep apnea) Surgical History Surgical History History of exploratory laparotomy Per patient report he was only born with [address] of the abdomen done sometime in the showed a concerning area in the left abdomen for which she had an exploratory laparotomy which revealed scar tissue and no mass. Family History Family History Father Acute myocardial infarction Cerebrovascular accident Mother Brain bleed Hypertension Mother No problems noted. Sibling Acute myocardial infarction Social History Social History Social History: Surrogate medical decision maker: Crispin Guy. Code status: Full code. Smoking packs per day: 1 Smoking cigarettes per day: 20.0 Years smoked: 35 Smoking pack-years: 35.00 Smoking status: Smoker, status unknown Tobacco type: cigar
--- NOTE | 2022-04-20 14:56 | WPDHPUPDATE1 ---
History and Physical Update Update Date/Time: 04/20/22 14:56 History and Physical has been reviewed, including an updated exam of the patient. There are NO changes in the patient's condition. Risks, benefits, and alternatives have been discussed and questions answered. Patient agrees to proceed with procedure. Stone is still present. We will proceed with ureteroscopy. He understands risks, benefits, alternatives, he understands he may need ureteral stent after
[2022-04-20] MEDS: LACTATED RINGERS 1,000 ML 30 ML IV CONT (15:00)
--- NOTE | 2022-04-20 15:44 | W.PM.PROC2 ---
Procedure Note - Detailed Date of Procedure 04/20/22 Pre-op Diagnosis Right ureteral stone Post-op Diagnosis Same Procedure Performed Cystoscopy, right retrograde pyelogram, right ureteroscopy, stent placement Surgeon Dion Guerra MD Anesthesia General Indications This is a gentleman who was transferred from outside hospital with a right ureteral stone. I repeated a CT scan this morning. The stone is still present. He states he has not passed the stone. He would like intervention. He is here for ureteroscopy. Understands risks of bleeding, infection, damage to the urinary tract, lack of stone presence. He agrees to proceed Findings No ureteral stone Description of Procedure His correctly identified. Informed consent obtained. From the operating room. He was given general anesthesia. He was placed in dorsal thigh position. He was prepped draped sterile fashion. Time-out performed. I performed cystoscopy. He had mild trabeculations and a large prostate. There is no bladder tumors or stones. I did a gentle retrograde pyelogram on the right. He had mild hydronephrosis. I did not see filling defect that would be consistent with stone. In light of his recent CT scan showing a stone I did perform ureteroscopy. I placed a guidewire to the kidney. I dilated the ureter with the 810 dilator. There was area of narrowing in the distal ureter and some excoriation of the ureter consistent with where his stone was. I was able for ureteroscopy well past the site of the stone all the way up into the lower part of the mid ureter. No stone was seen. I opted to leave a ureteral stent. I backloaded the scope over wire. I placed a 4.8 variable length stent. Proximal coil renal pelvis. Distal coil in the bladder. His bladder was drained. He was awakened transferred to PACU in stable condition Implants Ureteral stent Estimated Blood Loss 1 Urine Output 200 Pathology None sent Condition Stable Disposition PACU
--- NOTE | 2022-04-20 17:20 | PC.NURSE ---
Returned from OR via bed. Family at bedside.
[2022-04-20] MEDS: OXYBUTYNIN CHLORIDE 5 MG TABLET PO (17:33)
[2022-04-20] MEDS: PHENAZOPYRIDINE HCL 100 MG TABLET 200 MG PO (17:34)
[2022-04-20] MEDS: HYDROcodone/acetaminophen (*CRX) 10-325 MG TABLET 1 TAB PO (17:39)
[2022-04-21] VITALS: BP 115/61; PULSE 78; RESP 18; TEMP 36.3; O2SAT 93
[2022-04-21] MEDS: HYDROcodone/acetaminophen (*CRX) 10-325 MG TABLET 1 TAB PO ×2 (03:11→10:10)
[2022-04-21 03:59] VITALS: BP 135/80; PULSE 62; RESP 20; TEMP 36.4; O2SAT 94
[2022-04-21 05:09] LABS: Basophils Percent Auto 0.2 % (0.2-1.2); Eosinophils Percent Auto 0.2 % (0-4.4); Hematocrit 41.6 % (42.0-52.0); Hemoglobin 13.5 g/dL (14.0-18.0); Immature Granulocyte Absolute 0.04 K/mm3 (0.00-0.031); Immature Granulocyte Percent A 0.3 % (0-0.5); Lymphocytes Absolute Auto 1.34 K/mm3 (0.9-3.2); Lymphocytes Percent Auto 10.1 % (18.3-44.2); Mean Corpuscular HGB Conc 32.5 g/dl (32-36); Mean Corpuscular Hemoglobin 28.1 pg (26-34); Mean Corpuscular Volume 86.5 fl (80-100); Mean Platelet Volume 9.6 fl (7.4-10.4); Monocytes Absolute Auto 0.6 K/mm3 (0.1-0.6); Monocytes Percent Auto 4.4 % (2.6-8.5); Neutrophils Absolute Auto 11.3 K/mm3 (1.3-6.7); Neutrophils Percent Auto 84.8 % (45.5-73.1); Platelet Count Result 268 k/mm3 (150-375); Red Blood Count 4.81 M/mm3 (4.6-6.20); Red Cell Distribution Width 12.7 % (11.5-14.5); White Blood Count 13.3 K/mm3 (4.5-10.0)
[2022-04-21 05:42] LABS: Anion Gap 8 mmol/L (8-16); Blood Urea Nitrogen 19 mg/dL (9-20); Calcium 8.8 mg/dL (8.4-10.2); Carbon Dioxide 24 mmol/L (22-30); Chloride 104 mmol/L (98-107); Estimated CRCL calculation 72 ml/min; Estimated Glomerular Filt Rate 49; Glucose 137 mg/dL (65-110); Potassium 3.9 mmol/L (3.4-5.0); Sodium 136 mmol/L (137-145)
[2022-04-21] MEDS: OXYBUTYNIN CHLORIDE 5 MG TABLET PO ×2 (08:31→12:21)
[2022-04-21] MEDS: PHENAZOPYRIDINE HCL 100 MG TABLET 200 MG PO ×2 (08:31→12:21)
--- NOTE | 2022-04-21 12:35 | PM.DS ---
DS: Admitting Diagnosis Discharge Date 04/21/22 Admitting Diagnosis ureteteral stone DS: Discharge Diagnosis Discharge Diagnosis (1) Calculi, ureter: Code(s): N20.1 - Calculus of ureter Status: Acute Assessment and Plan: see plan from Urology. DS: Summary Hospital Course Hospital Course: admitted for ureteral stone, stent placed pain medication per urologist on dc fu urology as outpatient Time Spent with Patient Time attestation: Total time spent providing and/or coordinating discharge services: Exam Narrative: General: alert and oriented Psych: appropriate mood nad affect Eyes: PERRLA Neck: Trachea midline, no new lesions Skin: no changes Lungs: CTA Cardiac: Normal S1,S2, no MGR ABD: soft, nd, nt, nbs Ext: no new lesions, no cce Vasc: Pulses intact DS: Data Data Completed and Pending Labs on day of discharge: Labs from last 24 hours 04/21/22 04/21/22 04:55 04:55 WBC 13.3 H RBC 4.81 Hgb 13.5 L Hct 41.6 L MCV 86.5 MCH 28.1 MCHC 32.5 RDW 12.7 Plt Count 268 MPV 9.6 Immature Gran % (Auto) 0.3 Neut % (Auto) 84.8 H Lymph % (Auto) 10.1 L [place] % (Auto) 4.4 Eos % (Auto) 0.2 Baso % (Auto) 0.2 Lymph # (Auto) 1.34 [place] # (Auto) 0.6 Eos # (Auto) 0.0 Baso # (Auto) 0.0 Abs Immat Gran (auto) 0.04 H Absolute Neuts (auto) 11.3 H Absolute Nucleated RBC 0.0 Nucleated RBC % 0.0 Sodium 136 L Potassium 3.9 Chloride 104 Carbon Dioxide 24 Anion Gap 8 BUN 19 Creatinine 1.50 H Estim Creat Clear Calc 72 Estimated GFR 49 L Glucose 137 H Calcium 8.8 Discharge Plan Discharge Attending physician on discharge: Butch Genao Consulting providers: Dion Guerra Discharging Clinician: Jessica Chung Patient Disposition: Home, Self-Care Activity: may shower Diet: as tolerated Patient Instructions: Antibiotic Form, How to Stop Smoking (DC) Stand Alone Forms: General Discharge Information, Work/School Release IP Follow-up/Referrals: Dion Guerra MD [Physician] - (Urology with [address] Cabrera) Discharge Medications: New oxybutynin chloride 5 mg tablet 5 mg PO TID Qty: 30 0RF Rx Instructions: As needed for bladder spasms phenazopyridine [Pyridium] 200 mg tablet 200 mg PO TID PRN (Reason: pain) Qty: 30 0RF hydrocodone-acetaminophen 5-325 mg tablet 30 tablet PO Q6H PRN (Reason: pain) Qty: 20 0RF phenazopyridine [Pyridium] 200 mg tablet 200 mg PO TID PRN (Reason: pain) Qty: 30 0RF oxybutynin chloride 5 mg tablet 5 mg PO TID PRN (Reason: For bladder spasm) Qty: 30 0RF hyoscyamine sulfate [Levsin] 0.125 mg Tablet 0.125 mg PO TID PRN (Reason: Bladder Spasms) Qty: 15 0RF Continued hydrocodone-acetaminophen 10-325 mg tablet 1 tablet PO Q6H PRN (Reason: pain) Qty: 30 0RF Date of admission: 04/20/22 04:44 Primary Care Provider: Payam Coronel Admitting Provider: Monica Hernandez V. Attending physician on admission: Monica Hernandez V. Condition: Stable
--- NOTE | 2022-04-21 12:35 | PC.NURSE ---
Order clarified for pain medication on discharge instructions. Office staff notified me that [facility] pharmacy already called and it was clarified through the office. It is [place] 1 tablet not 30 tablets PO Q6 hr for pain.
--- NOTE | 2022-04-21 12:39 | WPDUROPN2 ---
Progress Note: A&P Assessment and Plan (1) Calculi, ureter: Code(s): N20.1 - Calculus of ureter Status: Acute Assessment and Plan: Plan to follow up in the office tomorrow for a stent removal. Ok to discharge home today on pain medication and levsin for bladder spasms. Pain is improved, bloody/dark urine is expected. Subjective Subjective Date/Time Seen: 04/21/22 12:39 Cystoscopy right retrograde pyelogram, right ureteroscopy with right stent placement. Patient doing okay today. He is c/o stent pain with urination, blood in his urine and dark urine. He is otherwise tolerating activity and diet. Post Op day: 1 Review of Systems Cardiovascular: Cardiovascular: Denies chest pain Respiratory: Respiratory: Reports no additional respiratory complaints Gastrointestinal: Gastrointestinal: Denies abdominal pain Genitourinary: Genitourinary: Reports hematuria, Denies dysuria, Reports flank pain, Denies urinary frequency and Denies urinary urgency Exam Const: General: cooperative and no acute distress Resp: Effort & Inspection: normal respiratory effort Cardio: Rate: regular rate GI: GI Palp: Yes Soft to palpation and No Tenderness to palpation present (GI) : General: Yes CVA tenderness on the right Extrem: Right lower extremity: no edema Left lower extremity: no edema Objective Data Vital Signs Vital Signs: Vital Signs - 24 hr 04/20/22 15:40 04/20/22 15:55 04/20/22 16:10 Temperature 98 F Pulse Rate 80 78 72 Respiratory Rate 20 17 18 Blood Pressure 125/93 H 145/101 H 159/105 H Pulse Oximetry 99 94 99 Oxygen Delivery Simple Face Mask Simple Face Mask Simple Face Mask Oxygen Flow Rate 6 6 6 04/20/22 16:25 04/20/22 16:40 04/20/22 16:55 Temperature Pulse Rate 67 66 65 Respiratory Rate 19 15 12 Blood Pressure 146/101 H 151/100 H 156/105 H Pulse Oximetry 92 92 92 Oxygen Delivery Room Air Room Air Room Air Oxygen Flow Rate 04/20/22 17:10 04/20/22 17:20 04/20/22 17:40 Temperature 97.2 F L 97.0 F L Pulse Rate 66 67 69 Respiratory Rate 14 16 16 Blood Pressure 159/95 H 133/92 H 144/97 H Pulse Oximetry 94 93 95 Oxygen Delivery Room Air Oxygen Flow Rate 04/20/22 18:10 04/20/22 17:25 04/20/22 20:44 Temperature 96.9 F L 97.1 F L Pulse Rate 64 62 Respiratory Rate 16 16 18 Blood Pressure 162/78 H 135/78 Pulse Oximetry 93 95 96 Oxygen Delivery Room Air Oxygen Flow Rate 04/20/22 20:00 04/21/22 00:00 04/21/22 03:59 Temperature 97.4 F L 97.5 F L Pulse Rate 78 62 Respiratory Rate 18 20 Blood Pressure 115/61 135/80 Pulse Oximetry 93 94 Oxygen Delivery Room Air Oxygen Flow Rate Intake/Output Intake/Output: Intake & Output 04/18/22 04/19/22 04/20/22 04/21/22 23:59 23:59 23:59 23:59 Intake Total 1340 1630 Output Total 600 950 Balance 740 680 Meds/Results Medications: Active Medications Generic Name Dose Route Start Last Admin Trade Name Freq PRN Reason Stop Dose Admin Hydrocodone Bitart/Acetaminophen 1 tab 04/20/22 17:14 04/21/22 10:10 Hydrocodone/Acetaminophen (*Crx) 10-325 Mg Tablet PO 1 tab Q6H PRN Administration PAIN RATED 7-10 Enoxaparin Sodium 40 mg 04/20/22 09:00 04/21/22 08:32 Enoxaparin 40 Mg/0.4 Ml Syringe SUB-Q Not Given DAILY ALYSSA Potassium Chloride/Sodium Chloride 1,000 mls @ 80 mls/hr 04/20/22 04:35 04/21/22 08:38 Kcl 20 Meq/0.45% Ns IV CONT Infused .[id number] ALYSSA Infusion Morphine Sulfate 2 mg 04/20/22 05:39 04/20/22 13:12 Morphine Sulfate (*Crx) 2 Mg/Ml Inj IV PUSH 2 mg Q4H PRN Administration Pain Rated 7-10 Ondansetron HCl 4 mg 04/20/22 05:39 Ondansetron Inj 4 Mg/2 Ml Vial IV PUSH Q6H PRN Nausea And Vomiting Oxybutynin Chloride 5 mg 04/20/22 17:14 04/21/22 12:21 Oxybutynin Chloride 5 Mg Tablet PO 5 mg TID ALYSSA Administration Phenazopyridine HCl 200 mg 04/20/22 17:14 04/21/22 12:21 Phenazopyridine Hcl 100 Mg
== END 2022-04-21 12:50 | disposition home or self-care (01) ==
PROVIDERS: Chiropractor; Urology; Admitting Provider Internal Medicine; PCP Family Medicine; Visit Provider Internal Medicine
PROC: (CPT 52352; principal; 2022-04-20 15:15)
DX: N13.30 Unspecified hydronephrosis (principal); N40.0 Benign prostatic hyperplasia without lower urinary tract symptoms; R00.1 Bradycardia, unspecified; Z87.442 Personal history of urinary calculi; E66.9 Obesity, unspecified; Z68.32 Body mass index [BMI] 32.0-32.9, adult; F17.210 Nicotine dependence, cigarettes, uncomplicated; Z79.891 Long term (current) use of opiate analgesic
CPT/HCPCS: 52332; 36415; 71046; 72192; 74420; 80048; 85025; 93005; 96365; 96366; 96375; 96376; A9270; C1758; C1769; C2617; G0378; G0379; J1100; J2250; J2270; J2405; J2704; J3010; J7120; Q9966

== ENCOUNTER 2022-04-24 16:08 | Outpatient (CLI) | payer OTHER, MEDICAID, SELFPAY ==
--- NOTE | ~2022-04-24 | CT_ITS ---
EXAMINATION: CT abdomen pelvis wo con DATE: 04/24/2022 16:51 INDICATION: Right ureteral stone. TECHNIQUE: Computed tomography (CT) of the abdomen and pelvis was performed without intravenous contr ast. Automated exposure control and iterative reconstruction technique were employed. The dose-length product was 578.45 mGy-cm. COMPARISON: CT abdomen and pelvis 04/20/2022 FINDINGS: The visualized portions of the lung bases demonstrate mild atelectasis. No pleural effusion . The heart size is normal. There are coronary artery calcifications. No pericardial effusion. There is wall thickening of the distal esophagus. Calcifications in the liver and spleen are consistent wit h old granulomatous disease. The gallbladder, pancreas, adrenal glands, and kidneys are normal. There is a 3 mm stone in proximal right ureter. There is a right internal ureteral stent in expected posit ion. There is diverticulosis of the colon without evidence of diverticulitis. There are no dilated lo ops of bowel. The appendix is normal. There are no pathologically enlarged lymph nodes. There is no f ree intraperitoneal fluid. There is mild thoracolumbar spondylosis. IMPRESSION: 1. 3 mm stone in proximal right ureter with internal ureteral stent in expected position. 2. Wall thickening of the distal esophagus, likely esophagitis. Reviewed, dictated and finalized at location A.
== END 2022-04-24 16:09 | disposition home or self-care (01) ==
PROVIDERS: PCP Family Medicine; Visit Provider Urology
DX: N20.1 Calculus of ureter (principal); Z96.0 Presence of urogenital implants; R93.3 Abnormal findings on diagnostic imaging of other parts of digestive tract
CPT/HCPCS: 74176

== ENCOUNTER 2022-05-08 01:14 | Day surgery (SDC) | payer OTHER, MEDICAID, SELFPAY ==
[2022-05-06 10:17] VITALS: BMI 30.6
--- NOTE | 2022-05-06 10:39 | PC.NURSE ---
Report to the Outpatient Waiting Room, entrance under the green pavilion located off [facility], at time 1100 on date 05/08/22. OR Time: 1300. Time changes happen often and if your time is changed the preop area will call you the afternoon before. - You and your visitor will be asked to self-screen and do not enter if you have any COVID symptoms. - We encourage only one visitor and NO visitors under age 16 are allowed at this time. Your visitor will receive communication by the phone number that is given day of service. - The patient visitor is requested to social distance or may leave the building when not with patient due to restrictions. - A mask is required within the hospital. Patients may have clear liquids (water, carbonated beverages, clear teas, apple juice) until 3 hours prior to surgery with a maximum of 20 ounces. - No food from midnight until time of surgery Take the following medications with a SIP of water the morning of surgery: PAIN PILL IF NEEDED Medications to discontinue per physician: N/A Date to take last dose: N/A Please no make-up, nail kazakh, hairspray, perfume, deodorant, or body powder the day of surgery. No jewelry (including any body piercings) or valuables the day of surgery, leave them at home. Please take a shower or bath the night before, or the morning of, surgery with an antibacterial soap. Wear comfortable, loose fitting clothing. - Jewelry must be removed prior to entering the operating room. Rings and piercings that are not removed may be cut off. - The hospital will not accept responsibility for valuables. - Please leave all valuables, including medications, at home the day of surgery. If you are going home after surgery, a licensed line haul truck driver must drive you home. - NO public transportation without another adult. - We recommend that an adult stay with you for 24 hours following discharge. - We also recommend that you do not drive, make important decision, drink alcoholic beverages, or take any drugs that were not prescribed by your health care provider for at least 24 hours after your discharge time. Follow any additional instructions given to you from your surgeon. If you or anyone in your household have experienced Covid symptoms in the past week, please notify your surgeon or the nurse liaison at the phone number below for possible testing. Telephone instructions given to PT - ROGELIO HUSSEIN and asked if any additional questions and then verbalized understanding. Patient advised to call surgeon office or pre surgery nurse liaison [phone] if any additional questions.
[2022-05-08] VITALS (13 sets, daily range): BP systolic 132–209; BP diastolic 90–121; PULSE 64–82; RESP 12–20; TEMP 36.4–36.6; O2SAT 80–99
--- NOTE | ~2022-05-08 | XR_ITS ---
EXAMINATION: XR fluoroscopy no charge DATE: 05/08/2022 12:46 INDICATION: Right ureteral stone. Cystoscopy and right ureteroscopy TECHNIQUE: 4 fluoroscopic images of the abdomen and pelvis were obtained during procedure performed carson Cabrera. Radiologist was not present for the imaging or procedure. The amount of fluoroscopy t ander used during this procedure was 0.1 minutes. COMPARISON: CT dated 04/24/2022 FINDINGS: Initial image redemonstrates a right internal ureteral stent with proximal loop in the region of the right renal pelvis. Subsequent images demonstrate removal of the stent with a ureteroscope advanced i nto first the lower pole and central upper pole the right kidney. No stones identified. IMPRESSION: 1. Fluoroscopy utilized during right ureteroscopy. See procedure note for further detail. Reviewed, dictated and finalized at location B. IMPRESSION: 1. Fluoroscopy utilized during right ureteroscopy. See procedure note for furth er detail.
--- NOTE | 2022-05-08 10:32 | WPDHPUPDATE1 ---
History and Physical Update Update Date/Time: 05/08/22 10:32 History and Physical has been reviewed, including an updated exam of the patient. There are NO changes in the patient's condition. Risks, benefits, and alternatives have been discussed and questions answered. Patient agrees to proceed with procedure. Proceed with cysto, right retrograde pyelogram, right ureteroscopy stone extraction, possible stent exchange
[2022-05-08] MEDS: LACTATED RINGERS 1,000 ML 30 ML IV CONT ×2 (10:45→14:31)
--- NOTE | 2022-05-08 12:01 | WPDANESEPPF ---
Anes - Initial Pre Proc Eval Procedure: Operation Date: 05/08/22 12:00 Proposed Procedures p Cystoscopy, Right Ureteroscopy, Right Retrograde Pyelogram, Right Stone Extraction, Possible Right Stent Exchange, Possible Holmium Laser - Von Cabrera MD Date/Time: 05/08/22 12:01 Surgeon: Von Cabrera MD Pre Op Diagnosis: Ureteral Kidney Stone, Right Patient Data Age: 51 Gender: M Height: 1.91 m Weight: 115.5 kg Last Vital Signs Temp 36.4 C 05/08/22 10:27 Pulse 72 05/08/22 10:27 Resp 16 05/08/22 10:27 BP 188/107 H 05/08/22 10:27 Pulse Ox 97 05/08/22 10:27 O2 Del Method Room Air 05/08/22 10:27 Allergies Allergy/AdvReac Type Severity Reaction Status Date / Time No Known Allergies Allergy Verified 05/08/22 10:20 Home Medications Medication Instructions Recorded Confirmed Type hydrocodone 10 mg-acetaminophen 1 tablet PO Q6H PRN pain #30 tabs 01/26/22 05/08/22 Rx 325 mg tablet oxybutynin chloride 5 mg tablet 5 mg PO TID PRN For bladder spasm 04/20/22 05/08/22 Rx #30 tabs phenazopyridine 200 mg tablet 200 mg PO TID PRN pain 6 doses #30 04/20/22 05/08/22 Rx (Pyridium) tabs hyoscyamine sulfate 0.125 mg 0.125 mg PO TID PRN Bladder Spasms 04/21/22 05/08/22 Rx tablet (Levsin) #15 tabs hydrocodone 5 mg-acetaminophen 325 1 tablet PO Q6H PRN pain 05/06/22 05/08/22 History mg tablet prochlorperazine maleate 10 mg 10 mg PO Q6H PRN Nausea 05/06/22 05/08/22 History tablet tamsulosin 0.4 mg capsule 0.4 mg PO DAILY 05/06/22 05/08/22 History Patient hx anesthesia problems: none Family hx anesthesia problems: none Results Review: All pre-operative results and documents have been reviewed as part of the pre-operative evaluation. [facility] Past Medical History Medical History Calculi, ureter Kidney stones Nicotine dependence Obesity VANIA (obstructive sleep apnea) Surgical History Surgical History History of exploratory laparotomy Per patient report he was only born with [address] of the abdomen done sometime in the showed a concerning area in the left abdomen for which she had an exploratory laparotomy which revealed scar tissue and no mass. Family History Family History Father Acute myocardial infarction Cerebrovascular accident Mother Brain bleed Hypertension Mother No problems noted. Sibling Acute myocardial infarction Social History Social History Social History: Surrogate medical decision maker: Crispin Guy. Code status: Full code. Smoking packs per day: 1 Smoking cigarettes per day: 20.0 Years smoked: 35 Smoking pack-years: 35.00 Smoking status: Current every day smoker Tobacco type: cigarettes Alcohol intake: current Alcohol use details: 1-2/YEAR Substance use: never Substance use type: does not use Living arrangements: with family Additional living arrangements comments: The patient lives with a friend in [place]. Additional occupation/education comments: Self-employed, owns a [employer]. Spiritual care concerns: No Anes - Eval Final PreProcedure Day of Procedure 05/08/22 12:01 Patient weight: obese Heart: regular rate and rhythm Lungs: decreased breath sounds Airway: Mallampati scale class II Neurological: alert and oriented Last oral intake: >/= 8 hours ASA classification: III Emergent: no Anesthetic plan: proceed Anesthesia type and monitoring: general LMA and standard monitoring Results Review: All pre-operative results and documents have been reviewed as part of the pre-operative evaluation. Informed Consent: The patient's anesthetic plan and its attendant risks and benefits were discussed with the patient/family/POASamaria Chen
[2022-05-08] MEDS: ceFAZolin 2 GM/D5W 50 ML 2 GM/50 ML BAG IVPB (12:05)
--- NOTE | 2022-05-08 12:40 | W.PM.PROC2 ---
Procedure Note - Detailed Date of Procedure 05/08/22 Pre-op Diagnosis Ureteral Kidney Stone, Right Post-op Diagnosis Same (Debris without distinct calcification) Procedure Performed Cystoscopy, right ureteroscopy, right stent removal Surgeon Von Cabrera MD Anesthesia General Description of Procedure Patient is taken the operative suite correctly identified. Once anesthesia was obtained was placed in dorsal lithotomy position and prepped and draped usual sterile fashion. Twenty-two [place] Islander scope inserted the bladder the right ureteral stent was grasped brought out the meatus. Guidewire was passed over the wire. Rigid ureteral scope was inserted into the orifice and the ureter was inspected up to the proximal ureter. No stone visualized he did have some debris which had the appearance of a stone. We using escape basket we placed around it but it just essentially dissolved. We then placed a 2nd wire placed mini flexible ureteral scope all way up to the kidney. The entire kidney was inspected there were no stones visualized at this time. Scope was removed. Given the minimal intervention we left the stent out. 2% viscous lidocaine was inserted urethra patient is taken recovery stable condition. He will need a ultrasound of his kidneys in approximately 3-4 weeks to make sure there is no residual hydronephrosis. Drains No Packing No Pathology None sent Complications No immediate complications Condition Stable Disposition PACU
[2022-05-08] MEDS: oxyCODONE HCL (*CRX) 5 MG TAB IR PO (13:59)
[2022-05-08] MEDS: fentaNYL CITRATE INJ (*CRX) 100 MCG/2 ML VIAL 25 MCG IV PUSH ×4 (14:15→14:33)
[2022-05-08] MEDS: KETOROLAC 15 MG/ML VIAL (*BKC) 10 MG IV PUSH (14:23)
--- NOTE | 2022-05-08 14:31 | SUR.PHASEII ---
PATIENT YELLING, WRITHING WITH PAIN. HOLDING RIGHT LOWER ABDOMEN. STATES HE HAS THE URGE TO URINATE BUT CAN'T. STATES HE ONLY HAD DRIBBLING IN THE BATHROOM. DR. HURD CALLED; BLADDER SCAN SHOWED 24 ML URINE. GIVEN FENTANYL 50 MCG IV AND 10 MG TORADOL IV WITH NO RELIEF.
[2022-05-08] MEDS: hydrALAZINE HCL 20 MG/ML VIAL 10 MG IV PUSH ×2 (14:47→15:05)
--- NOTE | 2022-05-08 14:49 | SUR.PHASEII ---
DR. NIXON CALLED FOR BP >200/>100; HYDRALAZINE 10 MG IV GIVEN. PATIENT SEDATED; SATS TO 80%; 10 LITERS PER FM PLACED FOR SATS 95%. PATIENT RESPONDS/SPEAKS TO VOICE AND TOUCH.
--- NOTE | 2022-05-08 15:01 | SUR.PHASEII ---
DR. NIXON CALLED FOR PERSISTENT ELEVATED BP'S; ORDERED 2ND DOSE OF 10 MG HYDRALAZINE IV.
--- NOTE | 2022-05-08 15:33 | SUR.PHASEII ---
DR. HURD CALLED FOR UPDATE; STATES IF PAIN IS TOLERABLE AND BP IS WNL HE CAN GO HOME; IF NOT, I WILL CALL DR. HURD AND PATIENT MAY NEED TO BE ADMITTED.
--- NOTE | 2022-05-08 16:49 | SUR.PHASEII ---
1630 HOSPITALIST CRISTINA CAME TO SEE PT. NO INTERVENTIONS/ADMISSION ANTICIPATED.
--- NOTE | 2022-05-08 17:11 | SUR.PHASEII ---
DR HURD CALLED TO UPDATE HIM ABOUT PATIENT'S STATUS. PATIENT IS AWAKE, ALERT X 3; HAS TOLERABLE RIGHT LOWER ABDOMINAL/GROIN PAIN. BP IMPROVED. DR. HURD AND DR. HUSSAIN CLEMONS'D PATIENT TO GO HOME. PATIENT VOIDED 500 ML JACK URINE.
--- NOTE | 2022-05-08 17:24 | SUR.PHASEII ---
DR. HURD CALLED RE: PATIENT'S TAMSULOSIN MED. DR. HURD SAID FOR PATIENT TO TAKE IT THROUGH THE WEEKEND; IF STILL HAVING PAIN ON WEDNESDAY TO CALL THE OFFICE FOR A REFILL.
== END 2022-05-08 17:45 | disposition home or self-care (01) ==
PROVIDERS: PCP Family Medicine; Visit Provider Urology
PROC: (CPT 52352; principal; 2022-05-08 12:00)
DX: N20.1 Calculus of ureter (principal); G47.33 Obstructive sleep apnea (adult) (pediatric); F17.210 Nicotine dependence, cigarettes, uncomplicated; E66.9 Obesity, unspecified; Z68.31 Body mass index [BMI] 31.0-31.9, adult
CPT/HCPCS: 52310; 99199; A9270; C1769; J0360; J0690; J1100; J1885; J2250; J2405; J2704; J3010; J7120

== ENCOUNTER 2022-05-27 13:35 | Outpatient (CLI) | payer OTHER, MEDICAID, SELFPAY ==
--- NOTE | ~2022-05-27 | US_ITS ---
EXAMINATION: US retroperitoneal comp DATE: 05/27/2022 14:23 INDICATION: RT URETERAL STONE TECHNIQUE: Multiple grayscale and Doppler ultrasound images of the retroperitoneum were obtained. COMPARISON: 04/24/2022 FINDINGS: The right kidney measures 12.9 x 4.9 x 6.1 cm. The left kidney measures 12.7 x 5.3 x 6.9 cm. The kidn eys demonstrate normal parenchymal echogenicity. There is no hydronephrosis. The bladder is normal. IMPRESSION: Unremarkable renal sonogram findings. Reviewed, dictated and finalized at location K.
== END 2022-05-27 13:36 | disposition home or self-care (01) ==
PROVIDERS: PCP Family Medicine; Visit Provider Urology
DX: N20.1 Calculus of ureter (principal)
CPT/HCPCS: 76770

== ENCOUNTER 2023-03-17 19:40 | Emergency (ER) | payer OTHER, MEDICAID, SELFPAY ==
--- NOTE | ~2023-03-17 | XR_ITS ---
EXAMINATION: XR knee RT 3V DATE: 03/17/2023 20:12 INDICATION: Right knee pain without known injury TECHNIQUE: Anteroposterior, oblique and crosstable lateral views of the right knee were obtained COMPARISON: None. FINDINGS: Alignment is normal. No fracture. Joint spaces appear normal on nonweightbearing imaging. Tiny margin al osteophytes in all 3 compartments consistent with at least minimal tricompartment osteoarthritis. Moderate-sized right knee joint effusion. Soft tissues are unremarkable. IMPRESSION: 1. Moderate-sized right knee joint effusion with at least minimal tricompartmental osteoarthritis wit hout acute osseous abnormality. Reviewed, dictated and finalized at location A. IMPRESSION: 1. Moderate-sized right knee joint effusion with at least minimal tricompartmen ismael osteoarthritis without acute osseous abnormality.
[2023-03-17 19:42] VITALS: BP 153/104; PULSE 100; RESP 14; TEMP 36.4; O2SAT 97
[2023-03-17] MEDS: HYDROcodone/acetaminophen (*CRX) 5-325 MG TABLET 1 TAB PO (21:30)
--- NOTE | 2023-03-17 21:33 | ED.GENADULT ---
HPI - General Adult General Chief complaint: Extremity Injury, Lower Stated complaint: right knee pain Time Seen by Provider: 03/17/23 20:02 History of Present Illness HPI narrative: 52-year-old male present emergency department for evaluation of right knee pain. Patient reports he has a history of osteoarthritis but has had worsening right knee pain over the last few days. Patient has been taking Tylenol for pain control. Patient denies any specific incident of fall or injury but states has had increased swelling of the knee over the last few days. Patient was told previously by an orthopedic surgeon that he will ultimately need replacement of the affected knee. Related Data Home Medications Medication Instructions Recorded Confirmed prochlorperazine maleate 10 mg 10 mg PO Q6H PRN Nausea 05/06/22 05/08/22 tablet tamsulosin 0.4 mg capsule 0.4 mg PO DAILY 05/06/22 05/08/22 Allergies Allergy/AdvReac Type Severity Reaction Status Date / Time No Known Allergies Allergy Verified 05/08/22 10:20 Review of Systems Review of Systems: All systems reviewed & are unremarkable except as noted in HPI and below PMFSH Past Medical History Medical History Calculi, ureter Kidney stones Nicotine dependence Obesity VANIA (obstructive sleep apnea) Surgical History Surgical History History of exploratory laparotomy Per patient report he was only born with [address] of the abdomen done sometime in the showed a concerning area in the left abdomen for which she had an exploratory laparotomy which revealed scar tissue and no mass. Family History Family History Father Acute myocardial infarction Cerebrovascular accident Mother Brain bleed Hypertension Mother No problems noted. Sibling Acute myocardial infarction Social History Social History Social History: Surrogate medical decision maker: Crispin Guy. Code status: Full code. Smoking packs per day: 1 Smoking cigarettes per day: 20.0 Years smoked: 35 Smoking pack-years: 35.00 Smoking status: Current every day smoker Tobacco type: cigarettes Alcohol intake: current Alcohol use details: 1-2/YEAR Substance use: never Substance use type: does not use Living arrangements: with family Additional living arrangements comments: The patient lives with a friend in [place]. Additional occupation/education comments: Self-employed, owns a [employer] company. Spiritual care concerns: No Exam Narrative: APPEARANCE: Well appearing, no pain, no distress, well-nourished. HEAD: normocephalic, atraumatic. EYES: PERRLA/EOMI, conjunctivae clear. NOSE: Normal no drainage NECK: Supple. No adenopathy, no masses. RESPIRATORY: Airway patent, respirations nonlabored. Clear to auscultation bilaterally, no rales, rhonchi, wheezing. CARDIOVASCULAR: Regular rate and rhythm without murmurs rubs or gallops. ABDOMINAL: Soft, nontender, nondistended, normal bowel sounds MUSCULOSKELETAL: Right knee effusion, decreased range of motion NEURO: Alert. Cranial nerves II through XII intact. SKIN: Warm, dry. Normal Color Course Course Emergency Course: 52-year-old male present emergency department for evaluation of right knee pain. Patient does have some osteoarthritis knee effusion on the x-ray but no evidence of acute fracture or dislocation. Patient was provided crutches for for limited weightbearing and knee immobilizer for comfort. Patient was also advised to take Aleve for anti-inflammatory and was provided a small prescription for [place] for pain control. Patient was encouraged of close follow-up with orthopedics. All question concerns were addressed and patient was comfortable to plan for discharge and close f
[2023-03-17 21:49] VITALS: BP 169/94; PULSE 75; RESP 16; TEMP 37; O2SAT 97
== END 2023-03-17 21:50 | disposition home or self-care (01) ==
PROVIDERS: Emergency Provider Emergency Medicine; PCP Family Medicine
DX: M25.561 Pain in right knee (principal); M17.11 Unilateral primary osteoarthritis, right knee; G47.33 Obstructive sleep apnea (adult) (pediatric); E66.9 Obesity, unspecified; Z68.31 Body mass index [BMI] 31.0-31.9, adult; Z87.442 Personal history of urinary calculi; F17.210 Nicotine dependence, cigarettes, uncomplicated
CPT/HCPCS: 73562; 99283; A9270